=== PATIENT | male | born 1985 | race Caucasian/White ===

== ENCOUNTER 2016-11-14 20:17 | Inpatient (IN) | payer OTHER ==
[~2016-11-14] VITALS: Ht 177.8 cm; Wt 87.5 kg
--- NOTE | 2016-11-14 22:19 | ERA ---
ER Documentation Chief Complaint Date/Time DATE: 11/14/16 TIME: 22:17 Chief Complaint feels left foot infection getting worse, on vanco atb at home. HPI 31-year-old man presents with left foot redness and recent swelling. He has a recent complicated history of left foot cellulitis and ulcers. He was treated as an inpatient [facility] under Dr. Alba. He received IV antibiotics , and a PICC line was placed. He is currently receiving daily vancomycin intravenously and states after discharge his symptoms have gotten gradually worse. He states he is also ran out of his benzodiazepine and opioid medications. He denies fevers or chills, no vomiting or diarrhea, no chest pain or shortness of breath, no abdominal pain. ROS All systems reviewed and are negative except as per history of present illness. Medications Home Meds Reported Medications Magnesium Sulfate (Epsom Salt) 454 Gm Crystals, 454 GM MC BID 11/14/16 Nystatin* (Nystatin*) 15 Gm Cr, 1 APPLIC TOP BID, #1 TUB 11/14/16 Venlafaxine Hcl* (Venlafaxine Hcl ER*) 75 Mg Cap.er.24h, 75 MG PO DAILY, CAP 11/14/16 Quetiapine Fumarate* (Quetiapine Fumarate*) 50 Mg Tablet, 50 MG PO HS, TAB 11/14/16 Lorazepam* (Ativan*) 2 Mg Tablet, 2 MG PO TID Y for ANXIETY, #30 TAB 11/14/16 Gabapentin* (Gabapentin*) 100 Mg Capsule, 100 MG PO QHS, #90 CAP 11/14/16 Insulin Lispro (Humalog) 100 Unit/1 Ml Cartridge, 0-16 UNIT SQ AC MEALS 11/14/16 Insulin Glargine* (Lantus*) 100 Unit/Ml Soln, 55 UNIT SC QHS, #1 VIAL 11/14/16 Vancomycin HCl in Dextrose 5 % (Vancomycin 750 mg/250 ml-D5w) 750 Mg/250 Ml Plast..bag, 750 MG IV Q8H 11/14/16 Sennosides* (Senna Lax*) 8.6 Mg Tablet, 1 TAB PO QHS Y for PRN, TAB 11/14/16 Povidone-Iodine (Povidone-Iodine) 10% - 30 Ml Liquid.pkt, 1 APPLIC TOP BID, EA 11/14/16 Oxycodone Hcl* (Oxycontin*) 10 Mg Tab.sr.12h, 10 MG PO Q8H, TAB 11/14/16 Vitamin B Complex (B Complete) 1 Each Tablet, 1 EACH PO DAILY, TAB 11/14/16 Ibuprofen* (Ibuprofen*) 600 Mg Tablet, 600 MG PO TID Y for PRN, TAB 11/14/16 Docusate Sodium* (Docusate Sodium*) 100 Mg Capsule, 100 MG PO BID Y for PRN, # 60 CAP 11/14/16 Discontinued Reported Medications Magnesium Sulfate (Magnesium Sulfate) 1 Gm Powder, 1 GM MC 11/14/16 Allergies Allergies: Coded Allergies: No Known Drug Allergies (Verified Allergy, Unknown, 11/14/16) PMhx/Soc Diabetes mellitus type 1 History of Surgery: Yes (rt humerus broken and repaired ) Hx Neurological Disorder: No Hx Respiratory Disorders: No Hx Cardiac Disorders: No Hx Alcohol Use: No Hx Substance Use: No Hx Tobacco Use: Yes Smoking Status: Current some day smoker FmHx Family History: diabetes Physical Exam Vitals Vital Signs Date Time Temp Pulse Resp B/P Pulse Ox O2 Delivery O2 Flow Rate FiO2 11/14/16 20:33 98.5 112 20 135/80 97 Physical Exam GENERAL: Well-developed, well-nourished, well-hydrated, in no apparent distress , looks nontoxic in appearance HEENT: Moist mucous membranes, pink conjunctiva, no cervical spine tenderness or step-off deformities, no goiter, no jaundice or icterus, extraocular movements intact without pain. No submandibular induration, and no pharyngeal erythema NEURO: Alert and oriented 3, cranial nerves II through XII intact bilaterally, pupils equal round reactive to light, no focal deficits or facial asymmetry, sensation intact distally Strength 5/5 in upper and lower extremities bilaterally CARDIAC: Regular rate and rhythm, no murmurs rubs or gallops LUNGS: Clear bilaterally no wheezing crackles or stridor ABDOMEN: Soft nontender, no guarding, no rigidity, no rebound, no psoas sign no obturator sign. Normoactive bowel sounds SKIN: Left foot soft tissue erythema and induration with 2 open weeping ulcerations to the lateral dorsal aspect of the left foot, no gangrenous changes or eschar formation EXTREMITIES: No clubbing cyanosis or edema, calves are bilaterally symmetrical, no Homans sign, no popliteal cord sign. Distal pulses equal and bilateral PSYCH: Normal affect without agitation or irritability Result Diagram: 11/14/16 2300 11/14/16 2330 Results 24 hrs Procedures/MDM IV line was established patient was placed on secured entrance monitor rhythm strip revealed a sinus rhythm at about 80 bpm with upright P and T waves. I administered imipenem cilastatin 500 mg IV 1, as well as hydromorphone 1 mg IV 1 for pain control. CBC revealed leukopenia at 2.5, electrolytes revealed dehydration with a BUN/ creatinine of 22/0.7, blood sugar elevated at 478, potassium slightly elevated at 5.2. I spoke to the physician covering Dr. Alba regarding the patient's presentation and symptomatology who recommended inpatient management to [facility] and continued IV antibiotics. Departure Diagnosis: Primary Impression: Cellulitis of foot Additional Impressions: Foot ulcer Qualified Code: L97.521 - Foot ulcer, left, limited to breakdown of skin Hyperglycemia Condition: ARJUN An MD Nov 14, 2016 22:19
[2016-11-14] MEDS ORDERED: IMIPENEM-CILAST 500MG IV (PMX) 100 ML IVPB ONE (22:30)
[2016-11-14] MEDS ORDERED: DOCU-159 PO (22:34)
[2016-11-14] MEDS ORDERED: IBUP-1542 PO (22:35)
[2016-11-14] MEDS ORDERED: VITA1TAB69 PO (22:40)
[2016-11-14] MEDS ORDERED: OXYC10TA63 PO (22:40)
[2016-11-14] MEDS ORDERED: POVI30SO TOP (22:41)
[2016-11-14] MEDS ORDERED: SENN-53 PO (22:42)
[2016-11-14] MEDS ORDERED: VANC750P5 IV (22:43)
[2016-11-14] MEDS ORDERED: LANT3I SC (22:44)
[2016-11-14] MEDS ORDERED: INSU100C SQ (22:45)
[2016-11-14] MEDS ORDERED: GABA100C14 PO (22:49)
[2016-11-14] MEDS ORDERED: LORA-444 PO (22:50)
[2016-11-14] MEDS ORDERED: QUET50TA22 PO (22:50)
[2016-11-14] MEDS ORDERED: VENL75CA89 PO (22:51)
[2016-11-14] MEDS ORDERED: NYST15CR28 TOP (22:53)
[2016-11-14] MEDS ORDERED: MAGN1POW MC (22:56)
[2016-11-14] MEDS ORDERED: MAGN454C7 MC (22:56)
[2016-11-14 23:10] LABS: ADD SCAN DIFF NO
[2016-11-14 23:15] LABS: BASOPHILS % 1.2 % (0.0-2.0); EOSINOPHILS # 0.1 10^3/ul (0.0-0.5); EOSINOPHILS % 2.8 % (0.0-7.0); HEMOGLOBIN 12.6 g/dl (14.0-18.0); LYMPHOCYTES # 0.7 10^3/ul (0.8-2.9); MEAN CORPUSCULAR HEMOGLOBIN 29.2 pg (29.0-33.0); MEAN CORPUSCULAR HGB CONC 33.2 g/dl (32.0-37.0); MEAN PLATELET VOLUME 11.1 fl (7.4-10.4); MONOCYTE # 0.3 10^3/ul (0.3-0.9); MONOCYTES % 10.5 % (0.0-11.0); NEUTROPHIL # 1.4 10^3/ul (1.6-7.5); NEUTROPHILS % 55.1 % (39.0-77.0); PLATELET COUNT 289 10^3/UL (140-415); RED BLOOD COUNT 4.32 10^6/ul (4.70-6.10); RED CELL DISTRIBUTION WIDTH 14.6 % (11.5-14.5); WHITE BLOOD COUNT 2.5 10^3/ul (4.8-10.8)
[2016-11-14] MEDS ORDERED: HYDROmorphONE 1 MG/ML SYG IV STA (23:22)
[2016-11-14 23:50] LABS: POTASSIUM 5.2 mmol/L (3.5-5.1)
[2016-11-14 23:53] LABS: CREATININE 0.71 mg/dl (0.61-1.24)
[2016-11-14 23:54] LABS: CALCIUM 8.6 mg/dl (8.4-10.2)
[2016-11-15] VITALS: BP 130/77; PULSE 80; RESP 20
[2016-11-15] MEDS ORDERED: IBUPROFEN 600 MG TAB PO PRN (01:00)
[2016-11-15] MEDS ORDERED: SENNA TAB PO PRN (01:00)
[2016-11-15] MEDS ORDERED: VANCOMYCIN IV PER PHARMACY XX SCH (01:00)
[2016-11-15] MEDS ORDERED: DOCUSATE SODIUM 100 MG CAP PO PRN (01:00)
[2016-11-15 01:24] VITALS: Ht 177.8 cm; Wt 87.5 kg
[2016-11-15] MEDS ORDERED: VANCOMYCIN 1.75 GM in NS 500 ML IVPB ONE (02:00)
[2016-11-15] MEDS: ACCUCHECK XX SCH (02:26)
[2016-11-15] MEDS: oxyCODONE (CR) 10 MG TAB [oxyCONTIN] PO SCH ×3 (02:33→17:01)
[2016-11-15] MEDS: INSULIN GLARGINE [LANtus] 3 ML PEN SC SCH ×2 (03:37→21:32)
[2016-11-15] MEDS: HYDROmorphONE 1 MG/ML SYG IV PRN ×5 (04:55→21:28)
[2016-11-15 06:07] LABS: BASOPHILS % 0.7 % (0.0-2.0); EOSINOPHILS # 0.1 10^3/ul (0.0-0.5); EOSINOPHILS % 4.1 % (0.0-7.0); HEMATOCRIT 34.9 % (42.0-52.0); HEMOGLOBIN 11.9 g/dl (14.0-18.0); LYMPHOCYTES # 0.9 10^3/ul (0.8-2.9); LYMPHOCYTES % 32.1 % (15.0-51.0); MEAN CORPUSCULAR HEMOGLOBIN 29.8 pg (29.0-33.0); MEAN CORPUSCULAR HGB CONC 34.1 g/dl (32.0-37.0); MEAN CORPUSCULAR VOLUME 87.3 fl (82.0-101.0); MEAN PLATELET VOLUME 9.8 fl (7.4-10.4); MONOCYTE # 0.3 10^3/ul (0.3-0.9); MONOCYTES % 11.4 % (0.0-11.0); NEUTROPHIL # 1.4 10^3/ul (1.6-7.5); NEUTROPHILS % 51.3 % (39.0-77.0); PLATELET COUNT 252 10^3/UL (140-415); RED CELL DISTRIBUTION WIDTH 14.1 % (11.5-14.5); WHITE BLOOD COUNT 2.7 10^3/ul (4.8-10.8)
[2016-11-15 06:17] LABS: POTASSIUM 4.5 mmol/L (3.5-5.1)
[2016-11-15 06:19] LABS: CREATININE 0.66 mg/dl (0.61-1.24)
[2016-11-15 06:20] LABS: CALCIUM 8.6 mg/dl (8.4-10.2)
[2016-11-15] MEDS: LORAZEPAM 1 MG TAB PO PRN ×2 (07:01→20:07)
[2016-11-15 07:59] VITALS: BP 106/58; RESP 18
[2016-11-15] MEDS: VITAMIN B COMPLEX/VIT C CAP PO SCH (08:26)
[2016-11-15] MEDS: VENLAFAXINE (XR) 75 MG CAP PO SCH (08:26)
[2016-11-15] MEDS: NYSTATIN 15 GM CR TOP SCH ×2 (08:27→21:43)
[2016-11-15] MEDS: INSULIN ASPART [NOVOLOG] 3 ML PEN SC SCH ×4 (08:50→21:00)
[2016-11-15] MEDS ORDERED: VANCOMYCIN 1.25 GM in SOD CHLORIDE 0.9% 250 ML IVPB SCH (10:00)
[2016-11-15] MEDS ORDERED: POVIDONE IODINE 10% 28.4 GM OINT TOP SCH (10:30)
--- NOTE | 2016-11-15 10:34 | RADRPT ---
PROCEDURE: XR Chest PA and Lateral CLINICAL INDICATION: Chest pain, short of breath, right upper extremity PICC line TECHNIQUE: PA and Lateral views of the chest were obtained. COMPARISON: None. FINDINGS: Cardiovascular: The cardiovascular silhouette appears unremarkable. Lung Fontana: The lung fontana appear clear with no nodule, alveolar infiltrate, for a interstitial pr ominence evident. Pleural Spaces: No pneumothorax is identified and no effusion is evident. Osseous Structures: The osseous structures appear intact. Soft Tissues: The soft tissues appear unremarkable. A right upper extremity PICC catheter is evident with the tip projecting to the superior vena cava. IMPRESSION: 1. Right upper extremity PICC catheter in place with the tip projecting to the superior vena cava. 2. Otherwise, unremarkable chest. Physician Vidal Date Time Electronically viewed and signed by Physician Vidal on 11/15/2016 10:34 /
--- NOTE | 2016-11-15 12:59 | CONS ---
Date/Time of Note Date/Time of Note DATE: 11/15/16 TIME: 12:01 Assessment/Plan Assessment/Plan Chief Complaint/Hosp Course ID PROGRESS NOTE TOTAL ABX DAY # 1=> Vanco IV + Primaxin IV x1 in ED 24H INTERVAL SUMMARY * New onset rash ?allergy to Primaxin * Subjective fevers/chills at home, no reports all his joints "ache" has been in bed x 1-month * Left foot pain level increasing HPI * 31 yo DMT1 M admitted initially to [facility] x2 days for acute left foot cellulitis/abscess reports MRI done @ [facility]. He left [facility] after 2 days due to his concern not receiving adequate care and presented immediately to [facility] the same day where he was treated/admitted x 14 days, PICC line was placed and patient was discharge to IV ABX treatment with Vanco IV daily. He was on Doxy + Zosyn at [place], reports he had "red melissa syndrome to Vanco IV , but not bad". Tells me arterial studies where done and were "OK". Questionable H/O diabetic nephropathy vs renal insufficiency in setting of NSAIDS + Vanco IV @ [facility] ? * (+)Cigarettes ~5/daily, wants to quit has 7 year old daughter @ Home * Denies Hx of HIV, he gives verbal consent to test for this, denies IVDU, quit ETOH DIAGNOSTIC IMAGING REPORT Patient: TAMI MILLER : 1985 Age: 31 Sex: M MR #: [id number] DOS: 11/15/16 0000 Ordering MD: ALFONZO ANDERSON MD [place] [facility] [place]Bed: 607-A PROCEDURE: XR Chest PA and Lateral CLINICAL INDICATION: Chest pain, short of breath, right upper extremity PICC line IMPRESSION: 1. Right upper extremity PICC catheter in place with the tip projecting to the superior vena cava. 2. Otherwise, unremarkable chest. PMhx/Soc Diabetes mellitus type 1 PSYCH: Depression/Anxiety History of Surgery: Yes (rt humerus broken and repaired - 2007 w/metal implant) Hx Neurological Disorder: No Hx Respiratory Disorders: No Hx Cardiac Disorders: No Hx Alcohol Use: No Hx Substance Use: No Hx Tobacco Use: Yes Smoking Status: Current some day smoker FmHx Family History: diabetes PHYSICAL EXAMINATION: GENERAL: VSS, NAD HEENT: Unremarkable NECK: Trach midline CHEST: Rise symmetrical - without dyspnea on observation HEART: RRR ABDOMEN: Soft, EXTREMITIES: Warm, left foot DSG removed foot w/mild edema, pallor, has 3 open lesions and one closed on dorsal aspect of foot (+)Lateral neuropathic pain SKIN: Multiple Tattoos, diffuse macular papular rash ID ASSESSMENT: 31 yo M w/PMHx DMT1, tobacco admit with: 1. Acute left foot cellulitis with non-healing diabetic foot ulcers -> Failed OP treatment with HH IV Vanco 2. Severe left foot pain => Progressively worse, Ultram was effective at [facility], No relief with Gabapentin/Tramadol 3. Diabetic peripheral neuropathy w/neuropathic pain 4. Tobaccoism -> Tobacco cessation strongly advocated today, educated patient about the toxic combo of tobacco + DMT1 leads to AVN - severe ischemic limb disease 5. Questionable H/O diabetic nephropathy vs renal insufficiency in setting of NSAIDS + Vanco IV @ [facility] ? 6. New onset pruritic rash => Suspect drug reaction to either Primaxin, cannot r /o reaction to Vanco IV. ( )MRSA Nares = pending INVASIVES: *PIV ABX ALLERGIES: UNVERIFIED: Possible acute reaction to either Primaxin or VANCO IV ? Red Man's Syndrome; however he has been tolerating Vanco IV via CURRENT ABX: Vanco IV, s/p Primaxin x1 ID RECOMMENDATIONS: Patient now with acute rash suspicious for either Vanco IV vs Primaxin ABX. Let's change Vanco IV to DAPTO IV, add Azactam + Flagyl for concern hx of abscess @ [facility] * ABX choices are limited due to concern PCN cross-reactivity with Primaxin, possibly with cephalosporins as well. Fluoroquinolones not an ideal choice to to severity of his DMT1 neuropathy. Await results nares and left foot open wound cx MRI ordered -> r/o abscess vs septic joint, tenosynovitis, osteomyelitis Left lower extremity BLANCA ordered DC Iodine -> Poor wound healing (Iodine is toxic to new skin cells), will change to Silvadene topical Consider APC consult Tattoos -> Patient gives me verbal consent to check HIV status . Problems: Consultation Date/Type/Reason Admit Date/Time Nov 14, 2016 at 22:08 Initial Consult Date Exam/Review of Systems Vital Signs Vitals Vital Signs Date Time Temp Pulse Resp B/P Pulse Ox O2 Delivery O2 Flow Rate FiO2 11/15/16 07:59 99.4 94 18 106/58 95 11/15/16 00:00 Room Air Intake and Output 11/14/16 11/14/16 11/15/16 15:00 23:00 07:00 Intake Total 960 ml Output Total 650 ml Balance 310 ml Results Result Diagram: 11/15/16 0515 11/15/16 0515 Results 24 hrs Laboratory Tests Test 11/14/16 23:00 11/14/16 23:30 11/15/16 02:26 11/15/16 05:15 Basophils # 0.0 0.0 Basophils % 1.2 0.7 Eosinophils # 0.1 0.1 Eosinophils % 2.8 4.1 Hematocrit 38.0 L 34.9 L Hemoglobin 12.6 L 11.9 L Lymphocytes # 0.7 L 0.9 Lymphocytes % 30.0 32.1 Mean Corpuscular Hemoglobin 29.2 29.8 Mean Corpuscular Hemoglobin Concent 33.2 34.1 Mean Corpuscular Volume 88.0 87.3 Mean Platelet Volume 11.1 H 9.8 Monocytes # 0.3 0.3 Monocytes % 10.5 11.4 H Neutrophils # 1.4 L 1.4 L Neutrophils % 55.1 51.3 Nucleated Red Blood Cells # 0.0 0.0 Nucleated Red Blood Cells % 0.0 0.0 Platelet Count 289 252 Red Blood Count 4.32 L 4.00 L Red Cell Distribution Width 14.6 H 14.1 White Blood Count 2.5 L 2.7 L Anion Gap 16 12 Blood Urea Nitrogen 22 H 18 Calcium Level 8.6 8.6 Carbon Dioxide Level 26 30 Chloride Level 95 L 101 Creatinine 0.71 0.66 Glucose Level 478 *H 269 #H Potassium Level 5.2 H 4.5 Sodium Level 132 L 138 Bedside Glucose 254 H Test 11/15/16 07:45 11/15/16 11:45 Bedside Glucose 224 H 65 L Medications Medications Current Medications Docusate Sodium (Colace) 100 mg BID PRN PO PRN; Start 11/15/16 at 01:00 Gabapentin (Neurontin) 100 mg QHS PO ; Start 11/15/16 at 21:00 Ibuprofen (Motrin) 600 mg TID PRN PO PRN; Start 11/15/16 at 01:00 Insulin Glargine (Lantus) 55 unit QHS SC Last administered on 11/15/16 03:37; Admin Dose 55 UNIT; Start 11/15/16 at 03:30 Lorazepam (Ativan) 2 mg TID PRN PO ANXIETY Last administered on 11/15/16 07:01 ; Admin Dose 2 MG; Start 11/15/16 at 01:00 Nystatin (Nystatin Cr) 1 applic BID TOP Last administered on 11/15/16 08:27; Admin Dose 1 APPLIC; Start 11/15/16 at 09:00 Oxycodone HCl (Oxycontin) 10 mg Q8H PO Last administered on 11/15/16 08:27; Admin Dose 10 MG; Start 11/15/16 at 01:00 Senna (Senokot) 1 tab QHS PRN PO PRN; Start 11/15/16 at 01:00 Venlafaxine HCl (Effexor Xr) 75 mg DAILY PO Last administered on 11/15/16 08: 26; Admin Dose 75 MG; Start 11/15/16 at 09:00 Povidone Iodine (Povidone-Iodine) 1 applic BID TOP ; Start 11/15/16 at 10:30 Quetiapine Fumarate (Seroquel) 50 mg HS PO ; Start 11/15/16 at 21:00 Vitamin B Complex/ Vitamin C (Berocca) 1 cap DAILY PO Last administered on 11/15 08:26; Admin Dose 1 CAP; Start 11/15/16 at 09:00 Diagnostic Test (Pha) 1 ea 1 ea 02 XX Last administered on 11/15/16 02:26; Admin Dose 1 EA; Start 11/15/16 at 02:00 Vancomycin HCl 1.75 gm/Sodium Chloride 500 ml @ 125 mls/hr ONCE ONCE IVPB Last administered on 11/15/16 02:22; Admin Dose 125 MLS/HR; Start 11/15/16 at 02:00; Stop 11/15/16 at 05:59 Vancomycin HCl/ Sodium Chloride (Vancocin/NS) 250 ml @ 83.333 mls/ hr Q8H IVPB Last administered on 11/15/16 10:48; Admin Dose 83.333 MLS/HR; Start at 10:00 Hydromorphone HCl (Dilaudid) 1 mg Q4H PRN IV PAIN Last administered on 09:14; Admin Dose 1 MG; Start 11/15/16 at 05:00 Miscellaneous Information (*Rx Drug Level Order Reminder*) VANCOMYCIN TROUGH AT 0100 ONCE ONCE XX ; Start 11/16/16 at 01:00; Stop 11/16/16 at 01:01 ODELL CAVAZOS NP Nov 15, 2016 12:11
[2016-11-15] MEDS: metroNIDAZOLE 500 MG/NS (PMX) 250 MG in EVAC CONTAINER 1 BOTTLE IVPB SCH ×2 (15:21→22:29)
[2016-11-15] MEDS: AZTREONAM 1 GM/NS (PMX) 50 ML IVPB SCH ×2 (16:18→21:51)
[2016-11-15] MEDS: DAPTOMYCIN IVPB SCH (17:01)
[2016-11-15] MEDS: SOD CHLORIDE 0.9% IVPB SCH (17:01)
--- NOTE | 2016-11-15 19:10 | HP ---
Date/Time of Note Date/Time of Note DATE: 11/15/16 TIME: 19:06 Assessment/Plan VTE Prophylaxis VTE Prophylaxis Intervention: LMWH Lines/Catheters Urinary Cath still in place: No Assessment/Plan Assessment/Plan admitted for iv abx id eval HPI/ROS Admit Date/Time Admit Date/Time Nov 14, 2016 at 22:08 Hx of Present Illness failed out pt abx rx contd foot swelling and pain and fevers pt came [facility] ROS Constitutional: febrile Eyes: no complaints ENT: no complaints Respiratory: no complaints Cardiovascular: no complaints Gastrointestinal: no complaints Musculoskeletal: swelling Skin: erythema, skin lesions Neurologic: no complaints PMH/Family/Social Past Medical History Medical History: diabetes Family History Significant Family History: no pertinent family hx Social History Alcohol Use: none Smoking Status: Never smoker Drug Use: none Exam/Review of Systems Vital Signs Vitals Vital Signs Date Time Temp Pulse Resp B/P Pulse Ox O2 Delivery O2 Flow Rate FiO2 11/15/16 07:59 99.4 94 18 106/58 95 11/15/16 00:00 Room Air Intake and Output 11/14/16 11/14/16 11/15/16 15:00 23:00 07:00 Intake Total 960 ml Output Total 650 ml Balance 310 ml Exam Constitutional: alert, oriented Psych: no complaints Head: atraumatic, normocephalic Eyes: nl conjunctiva ENMT: nl external ears & nose Neck: supple Respiratory: clear to auscultation, normal air movement Cardiovascular: nl pulses, regular rate and rhythm Gastrointestinal: nl liver, spleen, non-tender, soft Musculoskeletal: swelling Neurological: SOFT SUGAR SUPERVISOR II-XII intact Labs Result Diagram: 11/15/1651411/15/16514 Medications Medications Current Medications Docusate Sodium (Colace) 100 mg BID PRN PO PRN; Start 11/15/16 at 01:00 Gabapentin (Neurontin) 100 mg QHS PO ; Start 11/15/16 at 21:00 Ibuprofen (Motrin) 600 mg TID PRN PO PRN; Start 11/15/16 at 01:00 Insulin Glargine (Lantus) 55 unit QHS SC Last administered on 11/15/16t 03:37; Admin Dose 55 UNIT; Start 11/15/16 at 03:30 Lorazepam (Ativan) 2 mg TID PRN PO ANXIETY Last administered on 11/15/16 07:01 ; Admin Dose 2 MG; Start 11/15/16 at 01:00 Nystatin (Nystatin Cr) 1 applic BID TOP Last administered on 11/15/16 08:27; Admin Dose 1 APPLIC; Start 11/15/16 at 09:00 Oxycodone HCl (Oxycontin) 10 mg Q8H PO Last administered on 11/15/16 17:01; Admin Dose 10 MG; Start 11/15/16 at 01:00 Senna (Senokot) 1 tab QHS PRN PO PRN; Start 11/15/16 at 01:00 Venlafaxine HCl (Effexor Xr) 75 mg DAILY PO Last administered on 11/15/16 08: 26; Admin Dose 75 MG; Start 11/15/16 at 09:00 Quetiapine Fumarate (Seroquel) 50 mg HS PO ; Start 11/15/16 at 21:00 Vitamin B Complex/ Vitamin C (Berocca) 1 cap DAILY PO Last administered on 11/15 08:26; Admin Dose 1 CAP; Start 11/15/16 at 09:00 Diagnostic Test (Pha) (Accucheck) 1 ea 02 XX Last administered on 11/15/16 02: 26; Admin Dose 1 EA; Start 11/15/16 at 02:00 Hydromorphone HCl 1 mg 1 mg Q4H PRN IV PAIN Last administered on 11/15/16 17: 01; Admin Dose 1 MG; Start 11/15/16 at 05:00 Daptomycin 525 mg/ Sodium Chloride 100 ml @ 200 mls/hr Q24H IVPB Last administered on 11/15/16 17:01; Admin Dose 200 MLS/HR; Start 11/15/16 at 16:00 Metronidazole 250 mg/N/A 50 ml @ 50 mls/hr Q8 IVPB Last administered on 15:21; Admin Dose 50 MLS/HR; Start 11/15/16 at 15:30 Aztreonam (Azactam 1gm/NS (Pmx)) 50 ml @ 100 mls/hr Q8 IVPB Last administered on 11/15/16 16:18; Admin Dose 100 MLS/HR; Start 11/15/16 at 15:30 Silver Sulfadiazine (Thermazene 1% 25 Gm) 1 applic BID TOP ; Start 11/15/16 at 21:00 ALFONZO ANDERSON MD Nov 15, 2016 19:10
[2016-11-15 20:00] VITALS: BP 120/75; RESP 20
[2016-11-15] MEDS: SILVER SULFADIAZINE 1% 25 GM CR TOP SCH (20:22)
[2016-11-15] MEDS: QUETIAPINE 25 MG TAB PO SCH (21:00)
[2016-11-15] MEDS: GABAPENTIN 100 MG CAP PO SCH (21:00)
[2016-11-16] MEDS: oxyCODONE (CR) 10 MG TAB [oxyCONTIN] PO SCH ×3 (01:17→17:18)
[2016-11-16] MEDS: ACCUCHECK XX SCH (02:00)
[2016-11-16] MEDS: HYDROmorphONE 1 MG/ML SYG IV PRN ×6 (02:03→22:15)
[2016-11-16] MEDS: metroNIDAZOLE 500 MG/NS (PMX) 250 MG in EVAC CONTAINER 1 BOTTLE IVPB SCH ×3 (06:00→23:22)
[2016-11-16] MEDS: AZTREONAM 1 GM/NS (PMX) 50 ML IVPB SCH ×3 (06:00→22:17)
[2016-11-16 06:12] LABS: BASOPHILS % 0.7 % (0.0-2.0); EOSINOPHILS # 0.2 10^3/ul (0.0-0.5); HEMOGLOBIN 12.6 g/dl (14.0-18.0); LYMPHOCYTES # 1.1 10^3/ul (0.8-2.9); LYMPHOCYTES % 33.7 % (15.0-51.0); MEAN CORPUSCULAR HEMOGLOBIN 29.5 pg (29.0-33.0); MEAN CORPUSCULAR HGB CONC 34.2 g/dl (32.0-37.0); MEAN CORPUSCULAR VOLUME 86.4 fl (82.0-101.0); MEAN PLATELET VOLUME 7.2 fl (7.4-10.4); MONOCYTE # 0.4 10^3/ul (0.3-0.9); MONOCYTES % 11.8 % (0.0-11.0); NEUTROPHIL # 1.6 10^3/ul (1.6-7.5); NEUTROPHILS % 48.8 % (39.0-77.0); PLATELET COUNT 265 10^3/UL (140-440); RED BLOOD COUNT 4.28 10^6/ul (4.70-6.10); UNCORRECTED WBC 3.3 10^3/ul (4.8-10.8); WHITE BLOOD COUNT 3.3 10^3/ul (4.8-10.8)
[2016-11-16 06:24] LABS: CONDITION 1; LH ANALYZER COMMENTS 1
[2016-11-16 06:43] LABS: ALBUMIN 3.2 g/dl (3.3-4.9); POTASSIUM 3.9 mmol/L (3.5-5.1)
[2016-11-16 06:47] LABS: CALCIUM 8.8 mg/dl (8.4-10.2); CREATININE 0.67 mg/dl (0.61-1.24); PHOSPHORUS 4.4 mg/dl (2.5-4.9)
[2016-11-16 06:48] LABS: ALBUMIN 3.3 g/dl (3.3-4.9)
[2016-11-16 06:49] LABS: POTASSIUM 3.9 mmol/L (3.5-5.1)
[2016-11-16 06:50] LABS: C-REACTIVE PROTEIN 3.2 mg/dl (0.0-0.9)
[2016-11-16 06:51] LABS: BILIRUBIN,INDIRECT 0.1 mg/dl (0-1.1); BILIRUBIN,TOTAL 0.1 mg/dl (0.2-1.3); CREATININE 0.68 mg/dl (0.61-1.24)
[2016-11-16 06:52] LABS: ALBUMIN/GLOBULIN RATIO 1.17; CALCIUM 8.8 mg/dl (8.4-10.2); TOTAL PROTEIN 6.1 g/dl (6.1-8.1)
[2016-11-16 08:09] VITALS: BP 100/62; RESP 18
[2016-11-16] MEDS: INSULIN ASPART [NOVOLOG] 3 ML PEN SC SCH ×4 (08:15→22:27)
--- NOTE | 2016-11-16 08:29 | RADRPT ---
PROCEDURE: MRI OF THE LEFT FOOT. CLINICAL INDICATION: Diabetic ulcer. Clinical concern is for tenosynovitis and osteomyelitis. TECHNIQUE: Multiple MR pulse sequences in multiple planes were obtained. Images were interpreted o n the high-resolution PACS system. COMPARISON: None available FINDINGS: There are skin and subcutaneous defect at the dorsal margin of the midfoot more pronounced dorsal to the fifth metatarsal base seen on the sagittal sequence image 6. There is a subcutaneous fluid col lection/abscess in this region measuring up to 10 cm in length and up to 3 cm transverse and lies mu scle superficial to the extensor tendons. There are a few foci of hyperintensity extending deep to the extensor tendons. No definite tenosynovitis is seen. The flexor tendons are intact. No eviden ce for flexor tenosynovitis. No abnormal fluid collections are seen at the plantar musculature. There is a moderate bone marrow edema pattern at the lateral margins of the cuboid and calcaneus at the calcaneal cuboid joint is best seen on the sagittal sequence image 9 with faint T1 bone marrow s ignal changes seen on the coronal sequence image 42 likely representing early osteomyelitis. No abn ormal intra osseous collection is seen. IMPRESSION: 1. Moderate bone marrow edema and faint T1 bone marrow signal infiltration at the lateral margins o f the cuboid and calcaneus suggesting early osteomyelitis. 2. Moderate sized subcutaneous fluid collection/abscess at the dorsal margin of the midfoot most pr onounced near the lateral calcaneal cuboid margins and extending distally, measuring up to 10 cm in length, as detailed above. RPTAT: PP .Andrew Murray MD, MD Date Time Electronically viewed and signed by .Andrew Murray MD, MD on 11/16/2016 08:29 .d/
[2016-11-16] MEDS: NYSTATIN 15 GM CR TOP SCH ×2 (09:07→21:00)
[2016-11-16] MEDS: VENLAFAXINE (XR) 75 MG CAP PO SCH (09:07)
[2016-11-16] MEDS: SILVER SULFADIAZINE 1% 25 GM CR TOP SCH ×2 (09:07→23:23)
[2016-11-16] MEDS: VITAMIN B COMPLEX/VIT C CAP PO SCH (09:07)
[2016-11-16] MEDS: LORAZEPAM 1 MG TAB PO PRN ×2 (09:36→20:21)
--- NOTE | 2016-11-16 10:25 | PN ---
Date/Time of Note Date/Time of Note DATE: 11/16/16 TIME: 10:23 Assessment/Plan VTE Prophylaxis VTE Prophylaxis Intervention: other Assessment/Plan Problems: (1) Foot ulcer Status: Acute Qualifiers: Laterality: left Non-pressure ulcer stage: limited to breakdown of skin Qualified Code: L97.521 - Foot ulcer, left, limited to breakdown of skin (2) Cellulitis of foot Status: Acute (3) Hyperglycemia Status: Acute Assessment/Plan [id number] on iv abx id f/u pain control Exam/Review of Systems Vital Signs Vitals Vital Signs Date Time Temp Pulse Resp B/P Pulse Ox O2 Delivery O2 Flow Rate FiO2 11/16/16 08:09 98.3 78 18 100/62 94 11/15/16 00:00 Room Air Intake and Output 11/15/16 11/15/16 11/16/16 15:00 23:00 07:00 Intake Total 250 ml 1490 ml 580 ml Balance 250 ml 1490 ml 580 ml Exam Constitutional: alert, oriented Psych: no complaints Head: normocephalic ENMT: nl external ears & nose Neck: supple Respiratory: clear to auscultation Cardiovascular: regular rate and rhythm Gastrointestinal: soft Musculoskeletal: swelling Results Result Diagram: 11/16/16 0510 11/16/16 0510 Results 24 hrs Laboratory Tests Test 11/15/16 11:45 11/15/16 12:26 11/15/16 13:01 11/15/16 17:16 Bedside Glucose 65 L 74 75 66 L Test 11/15/16 17:48 11/15/16 18:05 11/15/16 21:27 11/16/16 05:00 Bedside Glucose 102 127 99 HIV (1&2) Antibody NEGATIVE Test 11/16/16 05:10 11/16/16 07:50 11/16/16 09:11 11/16/16 09:38 Alanine Aminotransferase (ALT/SGPT) 122 H Albumin 3.3 Albumin/Globulin Ratio 1.17 Alkaline Phosphatase 211 H Anion Gap 13 Aspartate Amino Transf (AST/SGOT) 110 H Basophils # 0.0 Basophils % 0.7 Blood Morphology Comment Blood Urea Nitrogen 16 C-Reactive Protein 3.2 H Calcium Level 8.8 Carbon Dioxide Level 30 Chloride Level 102 Creatinine 0.68 Direct Bilirubin 0.00 Eosinophils # 0.2 Eosinophils % 5.0 Erythrocyte Sedimentation Rate 14 Globulin 2.80 Glucose Level 56 L Hematocrit 37.0 L Hemoglobin 12.6 L Indirect Bilirubin 0.1 Lymphocytes # 1.1 Lymphocytes % 33.7 Mean Corpuscular Hemoglobin 29.5 Mean Corpuscular Hemoglobin Concent 34.2 Mean Corpuscular Volume 86.4 Mean Platelet Volume 7.2 #L Monocytes # 0.4 Monocytes % 11.8 H Neutrophils # 1.6 Neutrophils % 48.8 Nucleated Red Blood Cells # 0.0 Nucleated Red Blood Cells % 0.0 Phosphorus Level 4.4 Platelet Count 265 Potassium Level 3.9 Red Blood Count 4.28 L Red Cell Distribution Width 15.0 H Sodium Level 141 Total Bilirubin 0.1 L Total Protein 6.1 White Blood Count 3.3 #L Bedside Glucose 61 L 246 H 199 Medications Medications Current Medications Docusate Sodium (Colace) 100 mg BID PRN PO PRN; Start 11/15/16 at 01:00 Gabapentin (Neurontin) 100 mg QHS PO ; Start 11/15/16 at 21:00 Ibuprofen (Motrin) 600 mg TID PRN PO PRN; Start 11/15/16 at 01:00 Insulin Glargine (Lantus) 55 unit QHS SC Last administered on 11/15/16 21:32; Admin Dose 55 UNIT; Start 11/15/16 at 03:30 Lorazepam (Ativan) 2 mg TID PRN PO ANXIETY Last administered on 11/16/16 09:36 ; Admin Dose 2 MG; Start 11/15/16 at 01:00 Nystatin (Nystatin Cr) 1 applic BID TOP Last administered on 11/16/16 09:07; Admin Dose 1 APPLIC; Start 11/15/16 at 09:00 Oxycodone HCl (Oxycontin) 10 mg Q8H PO Last administered on 11/16/16 09:06; Admin Dose 10 MG; Start 11/15/16 at 01:00 Senna (Senokot) 1 tab QHS PRN PO PRN; Start 11/15/16 at 01:00 Venlafaxine HCl (Effexor Xr) 75 mg DAILY PO Last administered on 11/16/16 09: 07; Admin Dose 75 MG; Start 11/15/16 at 09:00 Quetiapine Fumarate (Seroquel) 50 mg HS PO ; Start 11/15/16 at 21:00 Vitamin B Complex/ Vitamin C (Berocca) 1 cap DAILY PO Last administered on 11/16 09:07; Admin Dose 1 CAP; Start 11/15/16 at 09:00 Diagnostic Test (Pha) (Accucheck) 1 ea 02 XX Last administered on 11/15/16 02: 26; Admin Dose 1 EA; Start 11/15/16 at 02:00 Hydromorphone HCl 1 mg 1 mg Q4H PRN IV PAIN Last administered on 11/16/16 09: 55; Admin Dose 1 MG; Start 11/15/16 at 05:00 Daptomycin 525 mg/ Sodium Chloride 100 ml @ 200 mls/hr Q24H IVPB Last administered on 11/15/16 17:01; Admin Dose 200 MLS/HR; Start 11/15/16 at 16:00 Metronidazole 250 mg/N/A 50 ml @ 50 mls/hr Q8 IVPB Last administered on 06:00; Admin Dose 50 MLS/HR; Start 11/15/16 at 15:30 Aztreonam (Azactam 1gm/NS (Pmx)) 50 ml @ 100 mls/hr Q8 IVPB Last administered on 11/16/16 06:00; Admin Dose 100 MLS/HR; Start 11/15/16 at 15:30 Silver Sulfadiazine (Thermazene 1% 25 Gm) 1 applic BID TOP Last administered on 11/16/16 09:07; Admin Dose 1 APPLIC; Start 11/15/16 at 21:00 ALFONZO ANDERSON MD Nov 16, 2016 10:25
[2016-11-16] MEDS: HYDROCODONE/APAP (10/325) TAB NGT PRN ×3 (12:10→20:22)
[2016-11-16] MEDS: ALTEPLASE (CATHFLO) 2 MG INJ CATHETER PRN ×2 (12:13→18:24)
--- NOTE | 2016-11-16 12:44 | CONS ---
Date/Time of Note Date/Time of Note DATE: 11/16/16 TIME: 12:38 Assessment/Plan Assessment/Plan Chief Complaint/Hosp Course ID PROGRESS NOTE TOTAL ABX DAY # 2=> DAPTOMYCIN + Azactam #2 + Flagyl #2 s/p Vanco IV x1 in ED s/p Primaxin IV x1 in ED 24H INTERVAL SUMMARY * New onset rash ?allergy to Primaxin * Subjective fevers/chills at home, no reports all his joints "ache" has been in bed x 1-month * Left foot pain level increasing * MRI FOOT 11/15/16: IMPRESSION: * 1. Moderate bone marrow edema and faint T1 bone marrow signal infiltration at the lateral margins of the cuboid and calcaneus suggesting early osteomyelitis. * 2. Moderate sized subcutaneous fluid collection/abscess at the dorsal margin of the midfoot most pronounced near the lateral calcaneal cuboid margins and extending distally, measuring up to 10 cm in length, as detailed above. HPI * 31 yo DMT1 M admitted initially to [facility] x2 days for acute left foot cellulitis/abscess reports MRI done @ [facility]. He left [facility] after 2 days due to his concern not receiving adequate care and presented immediately to [facility] the same day where he was treated/admitted x 14 days, PICC line was placed and patient was discharge to IV ABX treatment with Vanco IV daily. He was on Doxy + Zosyn at [place], reports he had "red melissa syndrome to Vanco IV , but not bad". Tells me arterial studies where done and were "OK". Questionable H/O diabetic nephropathy vs renal insufficiency in setting of NSAIDS + Vanco IV @ [place] ? * (+)Cigarettes ~5/daily, wants to quit has 7 year old daughter @ Home * Denies Hx of HIV, he gives verbal consent to test for this, denies IVDU, quit ETOH PHYSICAL EXAMINATION: GENERAL: VSS, NAD HEENT: Unremarkable NECK: Trach midline CHEST: Rise symmetrical - without dyspnea on observation HEART: RRR ABDOMEN: Soft, EXTREMITIES: Warm, left foot DSG removed foot w/mild edema, pallor, has 3 open lesions and one closed on dorsal aspect of foot (+)Lateral neuropathic pain SKIN: Multiple Tattoos, diffuse macular papular rash ID ASSESSMENT: 31 yo M w/PMHx DMT1, tobacco admit with: 1. Acute left foot cellulitis, abscess, early osteomyelitis with non-healing diabetic foot ulcers -> Failed OP treatment with HH IV Vanco * MRI FOOT 11/15/16: IMPRESSION: * 1. Moderate bone marrow edema and faint T1 bone marrow signal infiltration at the lateral margins of the cuboid and calcaneus suggesting early osteomyelitis. * 2. Moderate sized subcutaneous fluid collection/abscess at the dorsal margin of the midfoot most pronounced near the lateral calcaneal cuboid margins and extending distally, measuring up to 10 cm in length, as detailed above. 2. Severe left foot pain => Progressively worse, Ultram was effective at [place], No relief with Gabapentin/Tramadol 3. Diabetic peripheral neuropathy w/neuropathic pain 4. Tobaccoism -> Tobacco cessation strongly advocated today, educated patient about the toxic combo of tobacco + DMT1 leads to AVN - severe ischemic limb disease 5. Questionable H/O diabetic nephropathy vs renal insufficiency in setting of NSAIDS + Vanco IV @ [place] ? 6. New onset pruritic rash => Suspect drug reaction to either Primaxin, cannot r /o reaction to Vanco IV. (-)MRSA Nares (-)HIV Screening 11/15/16 INVASIVES: *PIV ABX ALLERGIES: UNVERIFIED: Possible acute reaction to either Primaxin or VANCO IV ? Red Man's Syndrome; however he has been tolerating Vanco IV via CURRENT ABX: DAPTOMYCIN #2 + Azactam #2 + Flagyl #2 Vanco IV, s/p Primaxin x1 ID RECOMMENDATIONS: Patient now with acute rash suspicious for either Vanco IV vs Primaxin ABX. ABX CHANGED DUE TO CONCERN ABX DRUG RASH: Vanco IV to DAPTO IV, add Azactam + Flagyl for concern hx of abscess @ [facility] * ABX choices are limited due to concern PCN cross-reactivity with Primaxin, possibly with cephalosporins as well. Fluoroquinolones not an ideal choice to to severity of his DMT1 neuropathy. Await results nares and left foot open wound cx MRI-> Abscess + early osteomyelitis => recommend APC consult Left lower extremity BLANCA ordered DC Iodine -> Poor wound healing (Iodine is toxic to new skin cells)=> changed to Silvadene topical Tattoos -> Patient gives me verbal consent to check HIV status which is negative. . Problems: Consultation Date/Type/Reason Admit Date/Time Nov 14, 2016 at 22:08 Exam/Review of Systems Vital Signs Vitals Vital Signs Date Time Temp Pulse Resp B/P Pulse Ox O2 Delivery O2 Flow Rate FiO2 11/16/16 08:09 98.3 78 18 100/62 94 11/15/16 00:00 Room Air Intake and Output 11/15/16 11/15/16 11/16/16 15:00 23:00 07:00 Intake Total 250 ml 1490 ml 580 ml Balance 250 ml 1490 ml 580 ml Results Result Diagram: 11/16/16 0510 11/16/16 0510 Results 24 hrs Laboratory Tests Test 11/15/16 13:01 11/15/16 17:16 11/15/16 17:48 11/15/16 18:05 Bedside Glucose 75 66 L 102 127 Test 11/15/16 21:27 11/16/16 05:00 11/16/16 05:10 11/16/16 07:50 Bedside Glucose 99 61 L HIV (1&2) Antibody NEGATIVE Alanine Aminotransferase (ALT/SGPT) 122 H Albumin 3.3 Albumin/Globulin Ratio 1.17 Alkaline Phosphatase 211 H Anion Gap 13 Aspartate Amino Transf (AST/SGOT) 110 H Basophils # 0.0 Basophils % 0.7 Blood Morphology Comment Blood Urea Nitrogen 16 C-Reactive Protein 3.2 H Calcium Level 8.8 Carbon Dioxide Level 30 Chloride Level 102 Creatinine 0.68 Direct Bilirubin 0.00 Eosinophils # 0.2 Eosinophils % 5.0 Erythrocyte Sedimentation Rate 14 Globulin 2.80 Glucose Level 56 L Hematocrit 37.0 L Hemoglobin 12.6 L Indirect Bilirubin 0.1 Lymphocytes # 1.1 Lymphocytes % 33.7 Mean Corpuscular Hemoglobin 29.5 Mean Corpuscular Hemoglobin Concent 34.2 Mean Corpuscular Volume 86.4 Mean Platelet Volume 7.2 #L Monocytes # 0.4 Monocytes % 11.8 H Neutrophils # 1.6 Neutrophils % 48.8 Nucleated Red Blood Cells # 0.0 Nucleated Red Blood Cells % 0.0 Phosphorus Level 4.4 Platelet Count 265 Potassium Level 3.9 Red Blood Count 4.28 L Red Cell Distribution Width 15.0 H Sodium Level 141 Total Bilirubin 0.1 L Total Protein 6.1 White Blood Count 3.3 #L Test 11/16/16 09:11 11/16/16 09:38 11/16/16 11:53 Bedside Glucose 246 H 199 211 Medications Medications Current Medications Docusate Sodium (Colace) 100 mg BID PRN PO PRN; Start 11/15/16 at 01:00 Gabapentin (Neurontin) 100 mg QHS PO ; Start 11/15/16 at 21:00 Ibuprofen (Motrin) 600 mg TID PRN PO PRN; Start 11/15/16 at 01:00 Insulin Glargine (Lantus) 55 unit QHS SC Last administered on 11/15/16 21:32; Admin Dose 55 UNIT; Start 11/15/16 at 03:30 Lorazepam (Ativan) 2 mg TID PRN PO ANXIETY Last administered on 11/16/16 09:36 ; Admin Dose 2 MG; Start 11/15/16 at 01:00 Nystatin (Nystatin Cr) 1 applic BID TOP Last administered on 11/16/16 09:07; Admin Dose 1 APPLIC; Start 11/15/16 at 09:00 Oxycodone HCl (Oxycontin) 10 mg Q8H PO Last administered on 11/16/16 09:06; Admin Dose 10 MG; Start 11/15/16 at 01:00 Senna (Senokot) 1 tab QHS PRN PO PRN; Start 11/15/16 at 01:00 Venlafaxine HCl (Effexor Xr) 75 mg DAILY PO Last administered on 11/16/16 09: 07; Admin Dose 75 MG; Start 11/15/16 at 09:00 Quetiapine Fumarate (Seroquel) 50 mg HS PO ; Start 11/15/16 at 21:00 Vitamin B Complex/ Vitamin C (Berocca) 1 cap DAILY PO Last administered on 11/16 09:07; Admin Dose 1 CAP; Start 11/15/16 at 09:00 Diagnostic Test (Pha) (Accucheck) 1 ea 02 XX Last administered on 11/15/16 02: 26; Admin Dose 1 EA; Start 11/15/16 at 02:00 Hydromorphone HCl 1 mg 1 mg Q4H PRN IV PAIN Last administered on 11/16/16 09: 55; Admin Dose 1 MG; Start 11/15/16 at 05:00 Daptomycin 525 mg/ Sodium Chloride 100 ml @ 200 mls/hr Q24H IVPB Last administered on 11/15/16 17:01; Admin Dose 200 MLS/HR; Start 11/15/16 at 16:00 Metronidazole 250 mg/N/A 50 ml @ 50 mls/hr Q8 IVPB Last administered on 06:00; Admin Dose 50 MLS/HR; Start 11/15/16 at 15:30 Aztreonam (Azactam 1gm/NS (Pmx)) 50 ml @ 100 mls/hr Q8 IVPB Last administered on 11/16/16 06:00; Admin Dose 100 MLS/HR; Start 11/15/16 at 15:30 Silver Sulfadiazine (Thermazene 1% 25 Gm) 1 applic BID TOP Last administered on 11/16/16 09:07; Admin Dose 1 APPLIC; Start 11/15/16 at 21:00 Acetaminophen/ Hydrocodone Bitart ([place] (325)) 1 tab Q4H PRN NGT pain Last administered on 11/16/16 12:10; Admin Dose 1 TAB; Start 11/16/16 at 10:30 [facility] [employer] Nov 16, 2016 12:44
[2016-11-16] MEDS: SOD CHLORIDE 0.9% IVPB SCH (17:11)
[2016-11-16] MEDS: DAPTOMYCIN IVPB SCH (17:11)
--- NOTE | 2016-11-16 18:16 | CONS ---
DATE OF ADMISSION: 11/14/2016 DATE OF CONSULTATION: 11/15/2016 TYPE OF CONSULTATION: Infectious disease. REASON FOR CONSULTATION: Antibiotic management. HISTORY OF PRESENT ILLNESS: Jak Vinson is a 31-year-old male with numerous problems who come s in with fever and chills and joint aches and is being seen for antibiotic management. His problem s include adult-onset diabetes mellitus. The patient was admitted to [facility] for 2 days for acute left foot cellulitis. He left after 2 days due to concern not receiving adequate care and went to [facility] where he was treated and admitted for 14 days. A PICC line was placed. The patient was discharged to home health with IV antibiotic therapy on vancomycin. He wa s on doxycycline as well as Zosyn in the hospital. At [facility], he reports he had red ma n syndrome due to vancomycin, but that it was not too bad. He has a history of diabetic nephropathy versus renal insufficiency in the setting of NSAIDs. PAST MEDICAL HISTORY: Operations: He had a right humerus broken and repaired with metal implant in 2007. FAMILY HISTORY: Positive for diabetes. SOCIAL HISTORY: He smokes daily. He does not drink or abuse drugs. ALLERGIES: NONE TO PENICILLIN, SULFA, OR FOODS. MEDICATIONS: Per chart. REVIEW OF SYSTEMS: Noncontributory. PHYSICAL EXAMINATION: GENERAL: The patient is a well-developed, well-nourished male who is alert, responsive, in no acute distress. VITAL SIGNS: Stable. He is afebrile. SKIN: Without generalized rash. HEENT: Within normal limits. NECK: Supple. LYMPH NODES: None palpable. CHEST: Decreased breath sounds at the bases. HEART: Without murmur or gallop. ABDOMEN: Soft, nontender without organosplenomegaly or masses. EXTREMITIES: His left foot is warm. It has mild edema. There are 3 open lesions and 1 closed on t he dorsal aspect of the left foot. He has neuropathic pain. RECTAL AND GENITAL: Deferred. NEUROLOGIC: No focal neurological abnormality except for decreased sensation in the distal extremit ies. SKIN: The patient also has multiple tattoos and he has diffuse maculopapular rash, possibly related to Primaxin, which he was started on. He was started on vancomycin and Primaxin in the emergency r oom. IMAGING: A chest x-ray shows a right upper extremity PICC catheter tip projecting into the superior vena cava. ASSESSMENT: The patient with acute rash suspicious for either vancomycin or Primaxin. PLAN: We placed him on daptomycin, Flagyl, and Azactam. We will continue him on this regimen. An MRI suggested early osteomyelitis of the cuboid and calcaneus of the left foot and also moderate siz ed subcutaneous fluid collection and abscess at the dorsal margin of the mid foot pronounced near th e lateral calcaneocuboid margins. The patient may need 6 weeks of IV antibiotic therapy. I want to thank ____ for asking us to see this gentleman in consultation. Dictated By: ABDIRAHMAN SIFUENTES MD, JD/NTS Conf#: [id number] DID#: [id number] CC: TEODORA GARCIA MD;*End*
[2016-11-16] MEDS: GABAPENTIN 100 MG CAP PO SCH (20:21)
[2016-11-16] MEDS: QUETIAPINE 25 MG TAB PO SCH (20:21)
[2016-11-16 20:36] VITALS: BP 132/83; RESP 18
[2016-11-16] MEDS: INSULIN GLARGINE [LANtus] 3 ML PEN SC SCH (22:27)
[2016-11-17] MEDS: oxyCODONE (CR) 10 MG TAB [oxyCONTIN] PO SCH ×3 (01:15→17:58)
[2016-11-17] MEDS: HYDROmorphONE 1 MG/ML SYG IV PRN ×5 (02:07→22:09)
[2016-11-17] MEDS: ACCUCHECK XX SCH (02:15)
[2016-11-17] MEDS ORDERED: GLUCOSE GEL 15 GRAM TUBE PO PRN ×2 (03:00)
[2016-11-17] MEDS ORDERED: GLUCOSE GEL 15 GRAM TUBE BUCCAL PRN (03:00)
[2016-11-17] MEDS ORDERED: DEXTROSE 50% 50 ML SYRINGE IV PRN ×2 (03:00)
[2016-11-17] MEDS ORDERED: GLUCAGON 1 MG INJ IM PRN (03:00)
[2016-11-17] MEDS: HYDROCODONE/APAP (10/325) TAB NGT PRN ×3 (03:31→19:46)
[2016-11-17] MEDS: AZTREONAM 1 GM/NS (PMX) 50 ML IVPB SCH ×3 (05:43→21:33)
[2016-11-17] MEDS: metroNIDAZOLE 500 MG/NS (PMX) 250 MG in EVAC CONTAINER 1 BOTTLE IVPB SCH ×3 (05:43→21:33)
[2016-11-17 05:57] LABS: CREATININE 0.76 mg/dl (0.61-1.24)
[2016-11-17 07:50] VITALS: BP 127/80; RESP 18
[2016-11-17] MEDS: INSULIN ASPART [NOVOLOG] 3 ML PEN SC SCH ×4 (08:15→20:36)
[2016-11-17] MEDS: VITAMIN B COMPLEX/VIT C CAP PO SCH (08:41)
[2016-11-17] MEDS: VENLAFAXINE (XR) 75 MG CAP PO SCH (08:41)
[2016-11-17] MEDS: NYSTATIN 15 GM CR TOP SCH ×2 (09:22→20:41)
[2016-11-17] MEDS: SILVER SULFADIAZINE 1% 25 GM CR TOP SCH ×2 (09:22→20:42)
[2016-11-17] MEDS: LORAZEPAM 1 MG TAB PO PRN ×2 (10:53→19:46)
--- NOTE | 2016-11-17 12:04 | PN ---
Date/Time of Note Date/Time of Note DATE: 11/17/16 TIME: 12:01 Assessment/Plan VTE Prophylaxis VTE Prophylaxis Intervention: other Assessment/Plan Problems: (1) Cellulitis of foot Status: Acute (2) Foot ulcer Status: Acute Qualifiers: Laterality: left Non-pressure ulcer stage: limited to breakdown of skin Qualified Code: L97.521 - Foot ulcer, left, limited to breakdown of skin Assessment/Plan [id number] abx per id pain control on iv medsw will be changed to po soon Exam/Review of Systems Vital Signs Vitals Vital Signs Date Time Temp Pulse Resp B/P Pulse Ox O2 Delivery O2 Flow Rate FiO2 11/17/16 07:50 97.7 73 18 127/80 98 11/15/16 00:00 Room Air Intake and Output 11/16/16 11/16/16 11/17/16 15:00 23:00 07:00 Intake Total 50 ml 2490 ml 750 ml Output Total 400 ml Balance 50 ml 2090 ml 750 ml Exam Constitutional: alert, oriented Head: normocephalic ENMT: nl external ears & nose Neck: supple Respiratory: clear to auscultation Cardiovascular: regular rate and rhythm Gastrointestinal: soft Extremities: tenderness Results Result Diagram: 11/16/16 0510 11/17/16 0450 Results 24 hrs Laboratory Tests Test 11/16/16 14:50 11/16/16 15:14 11/16/16 15:34 11/16/16 17:13 Bedside Glucose 62 L 73 108 143 Test 11/16/16 20:19 11/17/16 02:08 11/17/16 02:38 11/17/16 03:22 Bedside Glucose 191 69 L 52 L 148 Test 11/17/16 04:50 11/17/16 07:45 11/17/16 11:55 Blood Urea Nitrogen 19 Creatine Kinase 22 L Creatinine 0.76 Bedside Glucose 92 78 Medications Medications Current Medications Docusate Sodium (Colace) 100 mg BID PRN PO PRN; Start 11/15/16 at 01:00 Gabapentin (Neurontin) 100 mg QHS PO Last administered on 11/16/16t 20:21; Admin Dose 100 MG; Start 11/15/16 at 21:00 Ibuprofen (Motrin) 600 mg TID PRN PO PRN; Start 11/15/16 at 01:00 Insulin Glargine (Lantus) 55 unit QHS SC Last administered on 11/16/16 22:27; Admin Dose 55 UNIT; Start 11/15/16 at 03:30 Lorazepam (Ativan) 2 mg TID PRN PO ANXIETY Last administered on 11/17/16 10:53 ; Admin Dose 2 MG; Start 11/15/16 at 01:00 Nystatin (Nystatin Cr) 1 applic BID TOP Last administered on 11/17/16 09:22; Admin Dose 1 APPLIC; Start 11/15/16 at 09:00 Oxycodone HCl (Oxycontin) 10 mg Q8H PO Last administered on 11/17/16 08:42; Admin Dose 10 MG; Start 11/15/16 at 01:00 Senna (Senokot) 1 tab QHS PRN PO PRN; Start 11/15/16 at 01:00 Venlafaxine HCl (Effexor Xr) 75 mg DAILY PO Last administered on 11/17/16 08: 41; Admin Dose 75 MG; Start 11/15/16 at 09:00 Quetiapine Fumarate (Seroquel) 50 mg HS PO Last administered on 11/16/16 20:21 ; Admin Dose 50 MG; Start 11/15/16 at 21:00 Vitamin B Complex/ Vitamin C (Berocca) 1 cap DAILY PO Last administered on 11/17 08:41; Admin Dose 1 CAP; Start 11/15/16 at 09:00 Diagnostic Test (Pha) (Accucheck) 1 ea 02 XX Last administered on 11/17/16 02: 15; Admin Dose 1 EA; Start 11/15/16 at 02:00 Hydromorphone HCl 1 mg 1 mg Q4H PRN IV PAIN Last administered on 11/17/16 09: 21; Admin Dose 1 MG; Start 11/15/16 at 05:00 Daptomycin 525 mg/ Sodium Chloride 100 ml @ 200 mls/hr Q24H IVPB Last administered on 11/16/16 17:11; Admin Dose 200 MLS/HR; Start 11/15/16 at 16:00 Metronidazole 250 mg/N/A 50 ml @ 50 mls/hr Q8 IVPB Last administered on 05:43; Admin Dose 50 MLS/HR; Start 11/15/16 at 15:30 Aztreonam (Azactam 1gm/NS (Pmx)) 50 ml @ 100 mls/hr Q8 IVPB Last administered on 11/17/16 05:43; Admin Dose 100 MLS/HR; Start 11/15/16 at 15:30 Silver Sulfadiazine (Thermazene 1% 25 Gm) 1 applic BID TOP Last administered on 11/17/16 09:22; Admin Dose 1 APPLIC; Start 11/15/16 at 21:00 Acetaminophen/ Hydrocodone Bitart ([place] ()) 1 tab Q4H PRN NGT pain Last administered on 11/17/16 10:53; Admin Dose 1 TAB; Start 11/16/16 at 10:30 Miscellaneous Information 1 ea NOTE XX ; Start 11/17/16 at 03:00 Glucose (Glutose) 15 gm Q15M PRN PO DECREASED GLUCOSE; Start 11/17/16 at 03:00 Glucose (Glutose) 22.5 gm Q15M PRN PO DECREASED GLUCOSE; Start 11/17/16 at 03: 00 Dextrose (D50w Syringe) 25 ml Q15M PRN IV DECREASED GLUCOSE; Start 11/17/16 at 03:00 Dextrose (D50w Syringe) 50 ml Q15M PRN IV DECREASED GLUCOSE; Start 11/17/16 at 03:00 Glucagon (Glucagen) 1 mg Q15M PRN IM DECREASED GLUCOSE; Start 11/17/16 at 03:00 Glucose (Glutose) 15 gm Q15M PRN BUCCAL DECREASED GLUCOSE; Start 11/17/16 at 03 :00 ALFONZO ANDERSON MD Nov 17, 2016 12:03
[2016-11-17 13:03] LABS: ALBUMIN 3.4 g/dl (3.3-4.9)
[2016-11-17 13:04] LABS: POTASSIUM 4.5 mmol/L (3.5-5.1)
[2016-11-17 13:06] LABS: BILIRUBIN,INDIRECT 0.1 mg/dl (0-1.1); BILIRUBIN,TOTAL 0.1 mg/dl (0.2-1.3); CREATININE 0.73 mg/dl (0.61-1.24)
[2016-11-17 13:07] LABS: ALBUMIN/GLOBULIN RATIO 1.3; CALCIUM 8.7 mg/dl (8.4-10.2)
--- NOTE | 2016-11-17 14:02 | PN ---
DATE: 11/17/2016 SUBJECTIVE: Patient is alert, complaining of pain, asking me to increase his pain medication. He i s in no distress on the computer. No fevers. No labs this morning except BUN 19, creatinine 0.76. MICROBIOLOGY: Wound culture pending. Blood cultures have been negative. DIAGNOSTICS: MRI of the foot revealed possible early osteomyelitis and questionable 10 cm abscess i n the mid foot. ANTIMICROBIALS: 1. Daptomycin. 2. . 3. Flagyl. PHYSICAL EXAMINATION: GENERAL: Well-nourished, well-developed, middle-aged white man who is alert, in no distress. HEENT: Head atraumatic, normocephalic. Sclerae anicteric. Buccal mucosa pink. NECK: Supple, trachea midline. CHEST: Rise symmetrical. Breath sounds clear. HEART: S1, S2. ABDOMEN: Soft, bowel tones present. EXTREMITIES: Left foot dressing intact. ASSESSMENT: 1. Left foot cellulitis, possible osteomyelitis and abscess. 2. Diabetes with diabetic neuropathy. 3. Positive for tobacco use. PLAN: The patient remains stable. We will continue him on current antimicrobials, await for podiat ry evaluation. Dictated By: IRASEMA MORA [employer] OFFICER for ABDIRAHMAN HARGROVE/AKI Conf#: [id number] DID#: [id number]
[2016-11-17] MEDS: DAPTOMYCIN IVPB SCH (15:28)
[2016-11-17] MEDS: SOD CHLORIDE 0.9% IVPB SCH (15:28)
[2016-11-17 20:00] VITALS: BP 126/64; PULSE 74; RESP 16
[2016-11-17] MEDS: GABAPENTIN 100 MG CAP PO SCH (20:26)
[2016-11-17] MEDS: QUETIAPINE 25 MG TAB PO SCH (20:26)
[2016-11-17] MEDS: INSULIN GLARGINE [LANtus] 3 ML PEN SC SCH (20:34)
[2016-11-18] MEDS: oxyCODONE (CR) 10 MG TAB [oxyCONTIN] PO SCH ×3 (02:36→18:28)
[2016-11-18] MEDS: ACCUCHECK XX SCH (02:38)
[2016-11-18] MEDS: HYDROmorphONE 1 MG/ML SYG IV PRN ×5 (03:35→21:23)
[2016-11-18] MEDS: metroNIDAZOLE 500 MG/NS (PMX) 250 MG in EVAC CONTAINER 1 BOTTLE IVPB SCH ×3 (05:55→22:15)
[2016-11-18] MEDS: AZTREONAM 1 GM/NS (PMX) 50 ML IVPB SCH ×3 (05:55→21:23)
[2016-11-18] MEDS: HYDROCODONE/APAP (10/325) TAB NGT PRN ×3 (05:56→20:07)
[2016-11-18 07:16] VITALS: BP 130/71; RESP 20
[2016-11-18] MEDS: INSULIN ASPART [NOVOLOG] 3 ML PEN SC SCH ×5 (07:53→21:00)
[2016-11-18] MEDS: VITAMIN B COMPLEX/VIT C CAP PO SCH (09:35)
[2016-11-18] MEDS: VENLAFAXINE (XR) 75 MG CAP PO SCH (09:36)
[2016-11-18] MEDS: LORAZEPAM 1 MG TAB PO PRN ×2 (09:36→18:51)
[2016-11-18] MEDS: SILVER SULFADIAZINE 1% 25 GM CR TOP SCH ×2 (09:38→21:15)
[2016-11-18] MEDS: NYSTATIN 15 GM CR TOP SCH ×2 (09:38→21:15)
--- NOTE | 2016-11-18 12:26 | CONS ---
Date/Time of Note Date/Time of Note DATE: 11/18/16 TIME: 12:23 Assessment/Plan Assessment/Plan Chief Complaint/Hosp Course SUBJECTIVE: Patient is alert, feels better, no fevers, nad MICROBIOLOGY: Wound culture negative. Blood cultures have been negative. DIAGNOSTICS: MRI of the foot revealed possible early osteomyelitis and questionable 10 cm abscess in the mid foot. ANTIMICROBIALS: 1. Daptomycin. 2. Azactam. 3. Flagyl. PHYSICAL EXAMINATION: GENERAL: Well-nourished, well-developed, middle-aged white man who is alert, in no distress. HEENT: Head atraumatic, normocephalic. Sclerae anicteric. Buccal mucosa pink. NECK: Supple, trachea midline. CHEST: Rise symmetrical. Breath sounds clear. HEART: S1, S2. ABDOMEN: Soft, bowel tones present. EXTREMITIES: Left foot with decreased swelling and erythema. ASSESSMENT: 1. Left foot cellulitis, possible early osteomyelitis and abscess. 2. Diabetes with diabetic neuropathy. 3. Positive for tobacco use. PLAN: The patient remains stable. Left foot looks better. We will continue him on current antimicrobials, await for podiatry evaluation==> if pt has OM he will need to be on 6 weeks abx at home. DW patient Problems: Consultation Date/Type/Reason Admit Date/Time Nov 14, 2016 at 22:08 Initial Consult Date Type of Consultation: ID Exam/Review of Systems Vital Signs Vitals Vital Signs Date Time Temp Pulse Resp B/P Pulse Ox O2 Delivery O2 Flow Rate FiO2 11/18/16 07:16 97.8 76 20 130/71 95 11/17/16 20:00 Room Air Intake and Output 11/17/16 11/17/16 11/18/16 15:00 23:00 07:00 Intake Total 1940 ml 900 ml Output Total 400 ml 450 ml Balance 1540 ml 450 ml Results Result Diagram: 11/16/16 0510 11/17/16 1240 Results 24 hrs Laboratory Tests Test 11/17/16 12:40 11/17/16 17:32 11/17/16 20:30 11/18/16 02:38 Alanine Aminotransferase (ALT/SGPT) 110 H Albumin 3.4 Albumin/Globulin Ratio 1.30 Alkaline Phosphatase 201 H Anion Gap 13 Aspartate Amino Transf (AST/SGOT) 79 H Blood Urea Nitrogen 20 Calcium Level 8.7 Carbon Dioxide Level 30 Chloride Level 100 Creatinine 0.73 Direct Bilirubin 0.00 Globulin 2.60 Glucose Level 108 # Indirect Bilirubin 0.1 Potassium Level 4.5 Sodium Level 138 Total Bilirubin 0.1 L Total Protein 6.0 L Bedside Glucose 148 302 H 205 Test 11/18/16 07:28 11/18/16 11:30 Bedside Glucose 82 203 Medications Medications Current Medications Docusate Sodium (Colace) 100 mg BID PRN PO PRN; Start 11/15/16 at 01:00 Gabapentin (Neurontin) 100 mg QHS PO Last administered on 11/17/16 20:26; Admin Dose 100 MG; Start 11/15/16 at 21:00 Ibuprofen (Motrin) 600 mg TID PRN PO PRN; Start 11/15/16 at 01:00 Insulin Glargine (Lantus) 55 unit QHS SC Last administered on 11/17/16 20:34; Admin Dose 55 UNIT; Start 11/15/16 at 03:30 Lorazepam (Ativan) 2 mg TID PRN PO ANXIETY Last administered on 11/18/16 09:36 ; Admin Dose 2 MG; Start 11/15/16 at 01:00 Nystatin (Nystatin Cr) 1 applic BID TOP Last administered on 11/18/16 09:38; Admin Dose 1 APPLIC; Start 11/15/16 at 09:00 Oxycodone HCl (Oxycontin) 10 mg Q8H PO Last administered on 11/18/16 09:36; Admin Dose 10 MG; Start 11/15/16 at 01:00 Senna (Senokot) 1 tab QHS PRN PO PRN; Start 11/15/16 at 01:00 Venlafaxine HCl (Effexor Xr) 75 mg DAILY PO Last administered on 11/18/16 09: 36; Admin Dose 75 MG; Start 11/15/16 at 09:00 Quetiapine Fumarate (Seroquel) 50 mg HS PO Last administered on 11/17/16 20:26 ; Admin Dose 50 MG; Start 11/15/16 at 21:00 Vitamin B Complex/ Vitamin C (Berocca) 1 cap DAILY PO Last administered on 11/18 09:35; Admin Dose 1 CAP; Start 11/15/16 at 09:00 Diagnostic Test (Pha) (Accucheck) 1 ea 02 XX Last administered on 11/18/16 02: 38; Admin Dose 1 EA; Start 11/15/16 at 02:00 Hydromorphone HCl 1 mg 1 mg Q4H PRN IV PAIN Last administered on 11/18/16 08: 11; Admin Dose 1 MG; Start 11/15/16 at 05:00 Daptomycin 525 mg/ Sodium Chloride 100 ml @ 200 mls/hr Q24H IVPB Last administered on 11/17/16 15:28; Admin Dose 200 MLS/HR; Start 11/15/16 at 16:00 Metronidazole 250 mg/N/A 50 ml @ 50 mls/hr Q8 IVPB Last administered on 05:55; Admin Dose 50 MLS/HR; Start 11/15/16 at 15:30 Aztreonam (Azactam 1gm/NS (Pmx)) 50 ml @ 100 mls/hr Q8 IVPB Last administered on 11/18/16 05:55; Admin Dose 100 MLS/HR; Start 11/15/16 at 15:30 Silver Sulfadiazine (Thermazene 1% 25 Gm) 1 applic BID TOP Last administered on 11/18/16 09:38; Admin Dose 1 APPLIC; Start 11/15/16 at 21:00 Acetaminophen/ Hydrocodone Bitart ([place] (10/325)) 1 tab Q4H PRN NGT pain Last administered on 11/18/16 11:00; Admin Dose 1 TAB; Start 11/16/16 at 10:30 Miscellaneous Information 1 ea NOTE XX ; Start 11/17/16 at 03:00 Glucose (Glutose) 15 gm Q15M PRN PO DECREASED GLUCOSE; Start 11/17/16 at 03:00 Glucose (Glutose) 22.5 gm Q15M PRN PO DECREASED GLUCOSE; Start 11/17/16 at 03: 00 Dextrose (D50w Syringe) 25 ml Q15M PRN IV DECREASED GLUCOSE; Start 11/17/16 at 03:00 Dextrose (D50w Syringe) 50 ml Q15M PRN IV DECREASED GLUCOSE; Start 11/17/16 at 03:00 Glucagon (Glucagen) 1 mg Q15M PRN IM DECREASED GLUCOSE; Start 11/17/16 at 03:00 Glucose (Glutose) 15 gm Q15M PRN BUCCAL DECREASED GLUCOSE; Start 11/17/16 at 03 :00 Fentanyl (Duragesic 25 Mcg/Hr Patch) 1 patch Q72H TRANSDERM Last administered on 11/17/16t 21:33; Admin Dose 1 PATCH; Start 11/17/16 at 21:00 IRASEMA MORA NP Nov 18, 2016 12:26
--- NOTE | 2016-11-18 14:35 | PN ---
Date/Time of Note Date/Time of Note DATE: 11/18/16 TIME: 14:33 Assessment/Plan VTE Prophylaxis VTE Prophylaxis Intervention: other Assessment/Plan Chief Complaint/Hosp Course cont pain contriol iv abx poditrist f/u Problems: (1) Cellulitis of foot Status: Acute Exam/Review of Systems Vital Signs Vitals Vital Signs Date Time Temp Pulse Resp B/P Pulse Ox O2 Delivery O2 Flow Rate FiO2 11/18/16 07:16 97.8 76 20 130/71 95 11/17/16 20:00 Room Air Intake and Output 11/17/16 11/17/16 11/18/16 15:00 23:00 07:00 Intake Total 1940 ml 900 ml Output Total 400 ml 450 ml Balance 1540 ml 450 ml Exam Constitutional: alert, oriented Psych: no complaints Head: normocephalic Eyes: nl conjunctiva Neck: supple Respiratory: clear to auscultation Cardiovascular: regular rate and rhythm Gastrointestinal: soft Musculoskeletal: swelling Results Result Diagram: 11/16/16 0510 11/17/16 1240 Results 24 hrs Laboratory Tests Test 11/17/16 17:32 11/17/16 20:30 11/18/16 02:38 11/18/16 07:28 Bedside Glucose 148 302 H 205 82 Test 11/18/16 11:30 Bedside Glucose 203 Medications Medications Current Medications Docusate Sodium (Colace) 100 mg BID PRN PO PRN; Start 11/15/16 at 01:00 Gabapentin (Neurontin) 100 mg QHS PO Last administered on 11/17/16 20:26; Admin Dose 100 MG; Start 11/15/16 at 21:00 Ibuprofen (Motrin) 600 mg TID PRN PO PRN; Start 11/15/16 at 01:00 Insulin Glargine (Lantus) 55 unit QHS SC Last administered on 11/17/16 20:34; Admin Dose 55 UNIT; Start 11/15/16 at 03:30 Lorazepam (Ativan) 2 mg TID PRN PO ANXIETY Last administered on 11/18/16 09:36 ; Admin Dose 2 MG; Start 11/15/16 at 01:00 Nystatin (Nystatin Cr) 1 applic BID TOP Last administered on 11/18/16 09:38; Admin Dose 1 APPLIC; Start 11/15/16 at 09:00 Oxycodone HCl (Oxycontin) 10 mg Q8H PO Last administered on 11/18/16 09:36; Admin Dose 10 MG; Start 11/15/16 at 01:00 Senna (Senokot) 1 tab QHS PRN PO PRN; Start 11/15/16 at 01:00 Venlafaxine HCl (Effexor Xr) 75 mg DAILY PO Last administered on 11/18/16 09: 36; Admin Dose 75 MG; Start 11/15/16 at 09:00 Quetiapine Fumarate (Seroquel) 50 mg HS PO Last administered on 11/17/16 20:26 ; Admin Dose 50 MG; Start 11/15/16 at 21:00 Vitamin B Complex/ Vitamin C (Berocca) 1 cap DAILY PO Last administered on 11/18 09:35; Admin Dose 1 CAP; Start 11/15/16 at 09:00 Diagnostic Test (Pha) (Accucheck) 1 ea 02 XX Last administered on 11/18/16 02: 38; Admin Dose 1 EA; Start 11/15/16 at 02:00 Hydromorphone HCl 1 mg 1 mg Q4H PRN IV PAIN Last administered on 11/18/16 12: 26; Admin Dose 1 MG; Start 11/15/16 at 05:00 Daptomycin 525 mg/ Sodium Chloride 100 ml @ 200 mls/hr Q24H IVPB Last administered on 11/17/16 15:28; Admin Dose 200 MLS/HR; Start 11/15/16 at 16:00 Metronidazole 250 mg/N/A 50 ml @ 50 mls/hr Q8 IVPB Last administered on 05:55; Admin Dose 50 MLS/HR; Start 11/15/16 at 15:30 Aztreonam (Azactam 1gm/NS (Pmx)) 50 ml @ 100 mls/hr Q8 IVPB Last administered on 11/18/16 13:38; Admin Dose 100 MLS/HR; Start 11/15/16 at 15:30 Silver Sulfadiazine (Thermazene 1% 25 Gm) 1 applic BID TOP Last administered on 11/18/16 09:38; Admin Dose 1 APPLIC; Start 11/15/16 at 21:00 Acetaminophen/ Hydrocodone Bitart ([place] (10/325)) 1 tab Q4H PRN NGT pain Last administered on 11/18/16 11:00; Admin Dose 1 TAB; Start 11/16/16 at 10:30 Miscellaneous Information 1 ea NOTE XX ; Start 11/17/16 at 03:00 Glucose (Glutose) 15 gm Q15M PRN PO DECREASED GLUCOSE; Start 11/17/16 at 03:00 Glucose (Glutose) 22.5 gm Q15M PRN PO DECREASED GLUCOSE; Start 11/17/16 at 03: 00 Dextrose (D50w Syringe) 25 ml Q15M PRN IV DECREASED GLUCOSE; Start 11/17/16 at 03:00 Dextrose (D50w Syringe) 50 ml Q15M PRN IV DECREASED GLUCOSE; Start 11/17/16 at 03:00 Glucagon (Glucagen) 1 mg Q15M PRN IM DECREASED GLUCOSE; Start 11/17/16 at 03:00 Glucose (Glutose) 15 gm Q15M PRN BUCCAL DECREASED GLUCOSE; Start 11/17/16 at 03 :00 Fentanyl (Duragesic 25 Mcg/Hr Patch) 1 patch Q72H TRANSDERM Last administered on 11/17/16 21:33; Admin Dose 1 PATCH; Start 11/17/16 at 21:00 ALFONZO ANDERSON MD Nov 18, 2016 14:35
[2016-11-18] MEDS: SOD CHLORIDE 0.9% IVPB SCH (16:07)
[2016-11-18] MEDS: DAPTOMYCIN IVPB SCH (16:07)
[2016-11-18 20:00] VITALS: BP 142/73; RESP 20
[2016-11-18] MEDS ORDERED: INSULIN GLARGINE [LANtus] 3 ML PEN SC SCH (21:00)
[2016-11-18] MEDS: QUETIAPINE 25 MG TAB PO SCH (21:14)
[2016-11-18] MEDS: GABAPENTIN 100 MG CAP PO SCH (21:14)
--- NOTE | 2016-11-18 22:44 | CONS ---
Date/Time of Note Date/Time of Note DATE: 11/18/16 TIME: 22:37 Assessment/Plan Assessment/Plan Problems: (1) Diabetes mellitus, insulin dependent (IDDM), controlled (2) Cellulitis of foot Status: Acute (3) Foot ulcer Status: Acute Qualifiers: Qualified Code: L97.521 - Foot ulcer, left, limited to breakdown of skin (4) Foot abscess, left Comment: Patient will be scheduled for formal incision and drainage in the operating room. (5) Hyperglycemia Status: Acute Additional Assessment/Plan Patient is at risk for limb loss. Patient may require incision and drainage of the left foot. Continue current management with IV antibiotics and dressing changes. Partial weightbearing allowed. Thank you again for involving me in the care of this patient. If you have any questions regarding this case, please feel free to contact me at pager: [phone] or reach me at mobile: [phone]. Consultation Date/Type/Reason Admit Date/Time Nov 14, 2016 at 22:08 Date of Consultation: Nov 18, 2016 Type of Consultation: Foot and ankle surgery Reason for Consultation Evaluation left foot infection. Referring Provider: TEODORA GARCIA MD Hx of Present Illness Thank you very much for involving me in the care of this patient. 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 He says that about 6 weeks ago he started to develop red spots on his left foot and he does not recall the mechanism. He denies any trauma to his feet. He says that he continued to develop redness swelling and started to have increasing pain. He reports seeing pus and eventually went to [facility] emergency. He was admitted to the hospital and was placed on IV antibiotics. Patient was seen by a residential lawn specialist who after we stated that he does not have any need for surgery but did a bedside "incision and drainage". Patient says he was released home on oral antibiotics. He says that his condition got worse and he subsequently ended up coming to [facility]. He was admitted for infection and worsening of his condition the left foot. I was consulted for evaluation and treatment. Today, patient reports pain on the dorsal aspect of his foot. Patient denies recent fever and chills. Denies recent trauma. Patient has been on IV antibiotics since his admission. As per history of present illness. Eyes: no complaints ENT: no complaints Respiratory: no complaints Cardiovascular: no complaints Gastrointestinal: no complaints Musculoskeletal: swelling Skin: erythema, skin lesions Neurologic: no complaints Psychological: no complaints Past Medical History As per history of present illness. Medical History: diabetes Past Surgical History As per history of present illness. Social History Patient reports prior alcohol abuse. He says that he quit about a year ago. He reports smoking cigarettes. Alcohol Use: none Smoking Status: Never smoker Drug Use: none Exam/Review of Systems Vital Signs Vitals Vital Signs Date Time Temp Pulse Resp B/P Pulse Ox O2 Delivery O2 Flow Rate FiO2 11/18/16 20:00 98.1 67 20 142/73 97 11/17/16 20:00 Room Air Intake and Output 11/17/16 11/17/16 11/18/16 15:00 23:00 07:00 Intake Total 1940 ml 900 ml Output Total 400 ml 450 ml Balance 1540 ml 450 ml Exam Patient is in no acute distress laying supine in bed. Left foot examined shows erythema of the dorsal aspect with multiple small wounds in various stages of healing. There is no active pus and no bleeding noted. The area is tender to palpation. There is edema of the left midfoot noted. There is no malodor present. Labs reviewed. Imaging reviewed. Right foot shows no lesions. There is no tenderness to palpation of the right foot. Protective sensation seems to be decreased to sharp dull vibratory and temperature stimuli bilaterally with normal deep tendon reflexes. MRI of the left foot shows moderate bone marrow edema with faint T1 bone marrow signal infiltrate at the lateral margins of the cuboid and calcaneus suggestive of early osteomyelitis. There is a moderate sized subcutaneous fluid collection/abscess at the dorsal margin of the midfoot. Results Result Diagram: 11/16/16 0510 11/17/16 1240 Results 24 hrs Laboratory Tests Test 11/18/16 02:38 11/18/16 07:28 11/18/16 11:30 11/18/16 15:34 Bedside Glucose 205 82 203 61 L Test 11/18/16 16:04 11/18/16 16:52 11/18/16 21:13 Bedside Glucose 95 196 94 Medications Medications Current Medications Docusate Sodium (Colace) 100 mg BID PRN PO PRN; Start 11/15/16 at 01:00 Gabapentin (Neurontin) 100 mg QHS PO Last administered on 11/18/16 21:14; Admin Dose 100 MG; Start 11/15/16 at 21:00 Ibuprofen (Motrin) 600 mg TID PRN PO PRN; Start 11/15/16 at 01:00 Lorazepam (Ativan) 2 mg TID PRN PO ANXIETY Last administered on 11/18/16 18:51 ; Admin Dose 2 MG; Start 11/15/16 at 01:00 Nystatin (Nystatin Cr) 1 applic BID TOP Last administered on 11/18/16 21:15; Admin Dose 1 APPLIC; Start 11/15/16 at 09:00 Oxycodone HCl (Oxycontin) 10 mg Q8H PO Last administered on 11/18/16 18:28; Admin Dose 10 MG; Start 11/15/16 at 01:00 Senna (Senokot) 1 tab QHS PRN PO PRN; Start 11/15/16 at 01:00 Venlafaxine HCl (Effexor Xr) 75 mg DAILY PO Last administered on 11/18/16 09: 36; Admin Dose 75 MG; Start 11/15/16 at 09:00 Quetiapine Fumarate (Seroquel) 50 mg HS PO Last administered on 11/18/16 21:14 ; Admin Dose 50 MG; Start 11/15/16 at 21:00 Vitamin B Complex/ Vitamin C (Berocca) 1 cap DAILY PO Last administered on 11/18 09:35; Admin Dose 1 CAP; Start 11/15/16 at 09:00 Diagnostic Test (Pha) (Accucheck) 1 ea 02 XX Last administered on 11/18/16 02: 38; Admin Dose 1 EA; Start 11/15/16 at 02:00 Hydromorphone HCl 1 mg 1 mg Q4H PRN IV PAIN Last administered on 11/18/16 21: 23; Admin Dose 1 MG; Start 11/15/16 at 05:00 Daptomycin 525 mg/ Sodium Chloride 100 ml @ 200 mls/hr Q24H IVPB Last administered on 11/18/16 16:07; Admin Dose 200 MLS/HR; Start 11/15/16 at 16:00 Metronidazole 250 mg/N/A 50 ml @ 50 mls/hr Q8 IVPB Last administered on 22:15; Admin Dose 50 MLS/HR; Start 11/15/16 at 15:30 Aztreonam (Azactam 1gm/NS (Pmx)) 50 ml @ 100 mls/hr Q8 IVPB Last administered on 11/18/16 21:23; Admin Dose 100 MLS/HR; Start 11/15/16 at 15:30 Silver Sulfadiazine (Thermazene 1% 25 Gm) 1 applic BID TOP Last administered on 11/18/16 21:15; Admin Dose 1 APPLIC; Start 11/15/16 at 21:00 Acetaminophen/ Hydrocodone Bitart ([place] ()) 1 tab Q4H PRN NGT pain Last administered on 11/18/16 20:07; Admin Dose 1 TAB; Start 11/16/16 at 10:30 Miscellaneous Information 1 ea NOTE XX ; Start 11/17/16 at 03:00 Glucose (Glutose) 15 gm Q15M PRN PO DECREASED GLUCOSE; Start 11/17/16 at 03:00 Glucose (Glutose) 22.5 gm Q15M PRN PO DECREASED GLUCOSE; Start 11/17/16 at 03: 00 Dextrose (D50w Syringe) 25 ml Q15M PRN IV DECREASED GLUCOSE; Start 11/17/16 at 03:00 Dextrose (D50w Syringe) 50 ml Q15M PRN IV DECREASED GLUCOSE; Start 11/17/16 at 03:00 Glucagon (Glucagen) 1 mg Q15M PRN IM DECREASED GLUCOSE; Start 11/17/16 at 03:00 Glucose (Glutose) 15 gm Q15M PRN BUCCAL DECREASED GLUCOSE; Start 11/17/16 at 03 :00 Fentanyl (Duragesic 25 Mcg/Hr Patch) 1 patch Q72H TRANSDERM Last administered on 11/17/16 21:33; Admin Dose 1 PATCH; Start 11/17/16 at 21:00 Insulin Glargine (Lantus) 30 unit HS SC Last administered on 11/18/16 21:19; Admin Dose 30 UNIT; Start 11/18/16 at 21:00 JOEY TRIANA DPM Nov 18, 2016 22:43
[2016-11-19] MEDS: oxyCODONE (CR) 10 MG TAB [oxyCONTIN] PO SCH ×3 (01:19→16:59)
[2016-11-19] MEDS: HYDROmorphONE 1 MG/ML SYG IV PRN ×6 (01:26→21:11)
[2016-11-19] MEDS ORDERED: ACCUCHECK XX SCH (02:00)
[2016-11-19] MEDS: ACCUCHECK XX SCH (02:00)
[2016-11-19] MEDS: HYDROCODONE/APAP (10/325) TAB NGT PRN ×4 (04:56→18:22)
[2016-11-19] MEDS: AZTREONAM 1 GM/NS (PMX) 50 ML IVPB SCH ×3 (05:32→21:11)
[2016-11-19] MEDS: metroNIDAZOLE 500 MG/NS (PMX) 250 MG in EVAC CONTAINER 1 BOTTLE IVPB SCH ×3 (06:17→22:22)
[2016-11-19] MEDS: LORAZEPAM 1 MG TAB PO PRN (06:53)
[2016-11-19 07:44] VITALS: BP 105/56; RESP 18
[2016-11-19] MEDS: SILVER SULFADIAZINE 1% 25 GM CR TOP SCH ×2 (08:16→21:17)
[2016-11-19] MEDS: VENLAFAXINE (XR) 75 MG CAP PO SCH (08:17)
[2016-11-19] MEDS: VITAMIN B COMPLEX/VIT C CAP PO SCH (08:17)
[2016-11-19] MEDS: NYSTATIN 15 GM CR TOP SCH ×2 (08:17→21:49)
[2016-11-19] MEDS: INSULIN ASPART [NOVOLOG] 3 ML PEN SC SCH ×7 (08:24→21:49)
--- NOTE | 2016-11-19 12:57 | CONS ---
Date/Time of Note Date/Time of Note DATE: 11/19/16 TIME: 12:55 Assessment/Plan Assessment/Plan Chief Complaint/Hosp Course SUBJECTIVE: Patient is alert, feels ok, no fevers, nad MICROBIOLOGY: Wound culture negative. Blood cultures have been negative. DIAGNOSTICS: MRI of the foot revealed possible early osteomyelitis and questionable 10 cm abscess in the mid foot. ANTIMICROBIALS: 1. Daptomycin. 2. Azactam. 3. Flagyl. PHYSICAL EXAMINATION: GENERAL: Well-nourished, well-developed, middle-aged white man who is alert, in no distress. HEENT: Head atraumatic, normocephalic. Sclerae anicteric. Buccal mucosa pink. NECK: Supple, trachea midline. CHEST: Rise symmetrical. Breath sounds clear. HEART: S1, S2. ABDOMEN: Soft, bowel tones present. EXTREMITIES: Left foot with decreased swelling and erythema. ASSESSMENT: 1. Left foot cellulitis, possible early osteomyelitis and abscess. 2. Diabetes with diabetic neuropathy. 3. Positive for tobacco use. PLAN: The patient remains stable. We will continue him on current antimicrobials, follow podiatry rec-s==> if pt has OM he will need to be on 6 weeks abx DW staff Problems: Consultation Date/Type/Reason Admit Date/Time Nov 14, 2016 at 22:08 Type of Consultation: ID Referring Provider: TEODORA GARCIA MD Exam/Review of Systems Vital Signs Vitals Vital Signs Date Time Temp Pulse Resp B/P Pulse Ox O2 Delivery O2 Flow Rate FiO2 11/19/16 07:44 98.3 70 18 105/56 94 11/17/16 20:00 Room Air Intake and Output 11/18/16 11/18/16 11/19/16 15:00 23:00 07:00 Intake Total 1490 ml 950 ml Output Total 1100 ml 900 ml Balance 390 ml 50 ml Results Result Diagram: 11/16/16 0510 11/17/16 1240 Results 24 hrs Laboratory Tests Test 11/18/16 15:34 11/18/16 16:04 11/18/16 16:52 11/18/16 21:13 Bedside Glucose 61 L 95 196 94 Test 11/19/16 05:43 11/19/16 06:09 11/19/16 06:27 11/19/16 06:50 Hemoglobin A1c 9.2 H Bedside Glucose 54 L 71 106 Test 11/19/16 07:06 11/19/16 07:36 11/19/16 11:42 Bedside Glucose 160 210 246 H Medications Medications Current Medications Docusate Sodium (Colace) 100 mg BID PRN PO PRN; Start 11/15/16 at 01:00 Gabapentin (Neurontin) 100 mg QHS PO Last administered on 11/18/16 21:14; Admin Dose 100 MG; Start 11/15/16 at 21:00 Ibuprofen (Motrin) 600 mg TID PRN PO PRN; Start 11/15/16 at 01:00 Lorazepam (Ativan) 2 mg TID PRN PO ANXIETY Last administered on 11/19/16 06:53 ; Admin Dose 2 MG; Start 11/15/16 at 01:00 Nystatin (Nystatin Cr) 1 applic BID TOP Last administered on 11/19/16 08:17; Admin Dose 1 APPLIC; Start 11/15/16 at 09:00 Oxycodone HCl (Oxycontin) 10 mg Q8H PO Last administered on 11/19/16 08:17; Admin Dose 10 MG; Start 11/15/16 at 01:00 Senna (Senokot) 1 tab QHS PRN PO PRN; Start 11/15/16 at 01:00 Venlafaxine HCl (Effexor Xr) 75 mg DAILY PO Last administered on 11/19/16 08: 17; Admin Dose 75 MG; Start 11/15/16 at 09:00 Quetiapine Fumarate (Seroquel) 50 mg HS PO Last administered on 11/18/16 21:14 ; Admin Dose 50 MG; Start 11/15/16 at 21:00 Vitamin B Complex/ Vitamin C (Berocca) 1 cap DAILY PO Last administered on 11/19 08:17; Admin Dose 1 CAP; Start 11/15/16 at 09:00 Diagnostic Test (Pha) (Accucheck) 1 ea 02 XX Last administered on 11/18/16 02: 38; Admin Dose 1 EA; Start 11/15/16 at 02:00 Hydromorphone HCl 1 mg 1 mg Q4H PRN IV PAIN Last administered on 11/19/16 09: 01; Admin Dose 1 MG; Start 11/15/16 at 05:00 Daptomycin 525 mg/ Sodium Chloride 100 ml @ 200 mls/hr Q24H IVPB Last administered on 11/18/16 16:07; Admin Dose 200 MLS/HR; Start 11/15/16 at 16:00 Metronidazole 250 mg/N/A 50 ml @ 50 mls/hr Q8 IVPB Last administered on 06:17; Admin Dose 50 MLS/HR; Start 11/15/16 at 15:30 Aztreonam (Azactam 1gm/NS (Pmx)) 50 ml @ 100 mls/hr Q8 IVPB Last administered on 11/19/16 05:32; Admin Dose 100 MLS/HR; Start 11/15/16 at 15:30 Silver Sulfadiazine (Thermazene 1% 25 Gm) 1 applic BID TOP Last administered on 11/19/16 08:16; Admin Dose 1 APPLIC; Start 11/15/16 at 21:00 Acetaminophen/ Hydrocodone Bitart ([place] (10)) 1 tab Q4H PRN NGT pain Last administered on 11/19/16 10:00; Admin Dose 1 TAB; Start 11/16/16 at 10:30 Miscellaneous Information 1 ea NOTE XX ; Start 11/17/16 at 03:00 Glucose (Glutose) 15 gm Q15M PRN PO DECREASED GLUCOSE; Start 11/17/16 at 03:00 Glucose (Glutose) 22.5 gm Q15M PRN PO DECREASED GLUCOSE; Start 11/17/16 at 03: 00 Dextrose (D50w Syringe) 25 ml Q15M PRN IV DECREASED GLUCOSE; Start 11/17/16 at 03:00 Dextrose (D50w Syringe) 50 ml Q15M PRN IV DECREASED GLUCOSE; Start 11/17/16 at 03:00 Glucagon (Glucagen) 1 mg Q15M PRN IM DECREASED GLUCOSE; Start 11/17/16 at 03:00 Glucose (Glutose) 15 gm Q15M PRN BUCCAL DECREASED GLUCOSE; Start 11/17/16 at 03 :00 Fentanyl (Duragesic 25 Mcg/Hr Patch) 1 patch Q72H TRANSDERM Last administered on 11/17/16 21:33; Admin Dose 1 PATCH; Start 11/17/16 at 21:00 Insulin Glargine (Lantus) 30 unit HS SC Last administered on 2/14/17at 21:19; Admin Dose 30 UNIT; Start 11/18/16 at 21:00 IRASEMA MORA NP Nov 19, 2016 12:56
[2016-11-19] MEDS: DAPTOMYCIN IVPB SCH (15:29)
[2016-11-19] MEDS: SOD CHLORIDE 0.9% IVPB SCH (15:29)
[2016-11-19] MEDS: HYDROmorphONE 2 MG TAB PO PRN ×2 (16:24→22:21)
--- NOTE | 2016-11-19 19:14 | PN ---
Date/Time of Note Date/Time of Note DATE: 11/19/16 TIME: 19:10 Assessment/Plan VTE Prophylaxis VTE Prophylaxis Intervention: other Assessment/Plan Chief Complaint/Hosp Course cont pain contriol iv abx poditrist f/u [id number] wants more pain meds pain consult am Problems: Exam/Review of Systems Vital Signs Vitals Vital Signs Date Time Temp Pulse Resp B/P Pulse Ox O2 Delivery O2 Flow Rate FiO2 11/19/16 07:44 98.3 70 18 105/56 94 11/17/16 20:00 Room Air Intake and Output 11/18/16 11/18/16 11/19/16 15:00 23:00 07:00 Intake Total 1490 ml 950 ml Output Total 1100 ml 900 ml Balance 390 ml 50 ml Exam Constitutional: alert Neck: supple Respiratory: clear to auscultation Cardiovascular: regular rate and rhythm Gastrointestinal: soft Results Result Diagram: 11/16/16 0510 11/17/16 1240 Results 24 hrs Laboratory Tests Test 11/18/16 21:13 11/19/16 05:43 11/19/16 06:09 11/19/16 06:27 Bedside Glucose 94 54 L 71 Hemoglobin A1c 9.2 H Test 11/19/16 06:50 11/19/16 07:06 11/19/16 07:36 11/19/16 11:42 Bedside Glucose 106 160 210 246 H Test 11/19/16 17:03 Bedside Glucose 123 Medications Medications Current Medications Docusate Sodium (Colace) 100 mg BID PRN PO PRN; Start 11/15/16 at 01:00 Gabapentin (Neurontin) 100 mg QHS PO Last administered on 11/18/16 21:14; Admin Dose 100 MG; Start 11/15/16 at 21:00 Ibuprofen (Motrin) 600 mg TID PRN PO PRN; Start 11/15/16 at 01:00 Lorazepam (Ativan) 2 mg TID PRN PO ANXIETY Last administered on 11/19/16 06:53 ; Admin Dose 2 MG; Start 11/15/16 at 01:00 Nystatin (Nystatin Cr) 1 applic BID TOP Last administered on 11/19/16 08:17; Admin Dose 1 APPLIC; Start 11/15/16 at 09:00 Oxycodone HCl (Oxycontin) 10 mg Q8H PO Last administered on 11/19/16 16:59; Admin Dose 10 MG; Start 11/15/16 at 01:00 Senna (Senokot) 1 tab QHS PRN PO PRN; Start 11/15/16 at 01:00 Venlafaxine HCl (Effexor Xr) 75 mg DAILY PO Last administered on 11/19/16 08: 17; Admin Dose 75 MG; Start 11/15/16 at 09:00 Quetiapine Fumarate (Seroquel) 50 mg HS PO Last administered on 11/18/16 21:14 ; Admin Dose 50 MG; Start 11/15/16 at 21:00 Vitamin B Complex/ Vitamin C (Berocca) 1 cap DAILY PO Last administered on 11/19 08:17; Admin Dose 1 CAP; Start 11/15/16 at 09:00 Diagnostic Test (Pha) (Accucheck) 1 ea 02 XX Last administered on 11/18/16 02: 38; Admin Dose 1 EA; Start 11/15/16 at 02:00 Hydromorphone HCl 1 mg 1 mg Q4H PRN IV PAIN Last administered on 11/19/16 16: 59; Admin Dose 1 MG; Start 11/15/16 at 05:00; Stop 11/20/16 at 00:00 Daptomycin 525 mg/ Sodium Chloride 100 ml @ 200 mls/hr Q24H IVPB Last administered on 11/19/16 15:29; Admin Dose 200 MLS/HR; Start 11/15/16 at 16:00 Metronidazole 250 mg/N/A 50 ml @ 50 mls/hr Q8 IVPB Last administered on 14:18; Admin Dose 50 MLS/HR; Start 11/15/16 at 15:30 Aztreonam (Azactam 1gm/NS (Pmx)) 50 ml @ 100 mls/hr Q8 IVPB Last administered on 11/19/16 13:15; Admin Dose 100 MLS/HR; Start 11/15/16 at 15:30 Silver Sulfadiazine (Thermazene 1% 25 Gm) 1 applic BID TOP Last administered on 11/19/16 08:16; Admin Dose 1 APPLIC; Start 11/15/16 at 21:00 Acetaminophen/ Hydrocodone Bitart ([place] (10/325)) 1 tab Q4H PRN NGT pain Last administered on 11/19/16 18:22; Admin Dose 1 TAB; Start 11/16/16 at 10:30 Miscellaneous Information 1 ea NOTE XX ; Start 11/17/16 at 03:00 Glucose (Glutose) 15 gm Q15M PRN PO DECREASED GLUCOSE; Start 11/17/16 at 03:00 Glucose (Glutose) 22.5 gm Q15M PRN PO DECREASED GLUCOSE; Start 11/17/16 at 03: 00 Dextrose (D50w Syringe) 25 ml Q15M PRN IV DECREASED GLUCOSE; Start 11/17/16 at 03:00 Dextrose (D50w Syringe) 50 ml Q15M PRN IV DECREASED GLUCOSE; Start 11/17/16 at 03:00 Glucagon (Glucagen) 1 mg Q15M PRN IM DECREASED GLUCOSE; Start 11/17/16 at 03:00 Glucose (Glutose) 15 gm Q15M PRN BUCCAL DECREASED GLUCOSE; Start 11/17/16 at 03 :00 Fentanyl (Duragesic 25 Mcg/Hr Patch) 1 patch Q72H TRANSDERM Last administered on 11/17/16 21:33; Admin Dose 1 PATCH; Start 11/17/16 at 21:00 Insulin Glargine (Lantus) 20 unit HS SC ; Start 11/19/16 at 21:00 Hydromorphone HCl (Dilaudid) 6 mg Q6H PRN PO pain Last administered on 16:24; Admin Dose 6 MG; Start 11/19/16 at 16:00 ALFONZO ANDESRON MD Nov 19, 2016 19:14
[2016-11-19 19:50] VITALS: BP 122/77; RESP 20
[2016-11-19] MEDS: QUETIAPINE 25 MG TAB PO SCH (21:16)
[2016-11-19] MEDS: GABAPENTIN 100 MG CAP PO SCH (21:16)
[2016-11-19] MEDS: INSULIN GLARGINE [LANtus] 3 ML PEN SC SCH (21:48)
[2016-11-20] MEDS: oxyCODONE (CR) 10 MG TAB [oxyCONTIN] PO SCH ×3 (01:16→17:26)
[2016-11-20] MEDS: ACCUCHECK XX SCH (02:08)
[2016-11-20] MEDS: HYDROCODONE/APAP (10/325) TAB NGT PRN ×5 (02:40→20:45)
[2016-11-20] MEDS: LORAZEPAM 1 MG TAB PO PRN ×2 (04:07→20:46)
[2016-11-20] MEDS: HYDROmorphONE 2 MG TAB PO PRN ×4 (04:46→23:04)
[2016-11-20] MEDS: metroNIDAZOLE 500 MG/NS (PMX) 250 MG in EVAC CONTAINER 1 BOTTLE IVPB SCH ×3 (05:00→22:27)
[2016-11-20] MEDS: AZTREONAM 1 GM/NS (PMX) 50 ML IVPB SCH ×3 (06:05→22:05)
[2016-11-20 08:00] VITALS: BP 118/67; RESP 22
[2016-11-20] MEDS: VENLAFAXINE (XR) 75 MG CAP PO SCH (08:09)
[2016-11-20] MEDS: VITAMIN B COMPLEX/VIT C CAP PO SCH (08:09)
[2016-11-20] MEDS: NYSTATIN 15 GM CR TOP SCH ×2 (08:10→21:00)
[2016-11-20] MEDS: SILVER SULFADIAZINE 1% 25 GM CR TOP SCH ×2 (08:11→22:02)
[2016-11-20] MEDS: INSULIN ASPART [NOVOLOG] 3 ML PEN SC SCH ×7 (08:20→22:18)
--- NOTE | 2016-11-20 13:19 | CONS ---
Date/Time of Note Date/Time of Note DATE: 11/20/16 TIME: 13:18 Assessment/Plan Assessment/Plan Chief Complaint/Hosp Course SUBJECTIVE: Patient is alert, feels ok, no fevers, nad MICROBIOLOGY: Wound culture negative. Blood cultures have been negative. DIAGNOSTICS: MRI of the foot revealed possible early osteomyelitis and questionable 10 cm abscess in the mid foot. ANTIMICROBIALS: 1. Daptomycin. 2. Azactam. 3. Flagyl. PHYSICAL EXAMINATION: GENERAL: Well-nourished, well-developed, middle-aged white man who is alert, in no distress. HEENT: Head atraumatic, normocephalic. Sclerae anicteric. Buccal mucosa pink. NECK: Supple, trachea midline. CHEST: Rise symmetrical. Breath sounds clear. HEART: S1, S2. ABDOMEN: Soft, bowel tones present. EXTREMITIES: Left foot with decreased swelling and erythema. ASSESSMENT: 1. Left foot cellulitis, possible early osteomyelitis and abscess. 2. Diabetes with diabetic neuropathy. 3. Positive for tobacco use. PLAN: The patient remains stable. We will continue him on current antimicrobials, follow podiatry rec-s==> if pt has OM he will need to be on 6 weeks abx. ?need debridement per podiatry note DW pt Problems: Consultation Date/Type/Reason Admit Date/Time Nov 14, 2016 at 22:08 Type of Consultation: ID Referring Provider: TEODORA GARCIA MD Exam/Review of Systems Vital Signs Vitals Vital Signs Date Time Temp Pulse Resp B/P Pulse Ox O2 Delivery O2 Flow Rate FiO2 11/20/16 08:00 98.3 67 22 118/67 94 11/17/16 20:00 Room Air Intake and Output 11/19/16 11/19/16 11/20/16 15:00 23:00 07:00 Intake Total 2230 ml 870 ml Output Total 600 ml Balance 2230 ml 270 ml Results Result Diagram: 11/16/16 0510 11/17/16 1240 Results 24 hrs Laboratory Tests Test 11/19/16 17:03 11/19/16 21:29 11/20/16 01:17 11/20/16 06:11 Bedside Glucose 123 257 H 250 H 180 Test 11/20/16 07:52 11/20/16 11:44 Bedside Glucose 230 H 129 Medications Medications Current Medications Docusate Sodium (Colace) 100 mg BID PRN PO PRN; Start 11/15/16 at 01:00 Gabapentin (Neurontin) 100 mg QHS PO Last administered on 11/19/16 21:16; Admin Dose 100 MG; Start 11/15/16 at 21:00 Ibuprofen (Motrin) 600 mg TID PRN PO PRN; Start 11/15/16 at 01:00 Lorazepam (Ativan) 2 mg TID PRN PO ANXIETY Last administered on 11/20/16 04:07 ; Admin Dose 2 MG; Start 11/15/16 at 01:00 Nystatin (Nystatin Cr) 1 applic BID TOP Last administered on 11/20/16 08:10; Admin Dose 1 APPLIC; Start 11/15/16 at 09:00 Oxycodone HCl (Oxycontin) 10 mg Q8H PO Last administered on 11/20/16 08:09; Admin Dose 10 MG; Start 11/15/16 at 01:00 Senna (Senokot) 1 tab QHS PRN PO PRN; Start 11/15/16 at 01:00 Venlafaxine HCl (Effexor Xr) 75 mg DAILY PO Last administered on 11/20/16 08: 09; Admin Dose 75 MG; Start 11/15/16 at 09:00 Quetiapine Fumarate (Seroquel) 50 mg HS PO Last administered on 11/19/16 21:16 ; Admin Dose 50 MG; Start 11/15/16 at 21:00 Vitamin B Complex/ Vitamin C (Berocca) 1 cap DAILY PO Last administered on 11/20 08:09; Admin Dose 1 CAP; Start 11/15/16 at 09:00 Diagnostic Test (Pha) 1 ea 1 ea 02 XX Last administered on 11/20/16 02:08; Admin Dose 1 EA; Start 11/15/16 at 02:00 Daptomycin 525 mg/ Sodium Chloride 100 ml @ 200 mls/hr Q24H IVPB Last administered on 11/19/16 15:29; Admin Dose 200 MLS/HR; Start 11/15/16 at 16:00 Metronidazole 250 mg/N/A 50 ml @ 50 mls/hr Q8 IVPB Last administered on 05:00; Admin Dose 50 MLS/HR; Start 11/15/16 at 15:30 Aztreonam (Azactam 1gm/NS (Pmx)) 50 ml @ 100 mls/hr Q8 IVPB Last administered on 11/20/16 06:05; Admin Dose 100 MLS/HR; Start 11/15/16 at 15:30 Silver Sulfadiazine (Thermazene 1% 25 Gm) 1 applic BID TOP Last administered on 11/20/16 08:11; Admin Dose 1 APPLIC; Start 11/15/16 at 21:00 Acetaminophen/ Hydrocodone Bitart ([place] (10325)) 1 tab Q4H PRN NGT pain Last administered on 11/20/16 06:53; Admin Dose 1 TAB; Start 11/16/16 at 10:30 Miscellaneous Information 1 ea NOTE XX ; Start 11/17/16 at 03:00 Glucose (Glutose) 15 gm Q15M PRN PO DECREASED GLUCOSE; Start 11/17/16 at 03:00 Glucose (Glutose) 22.5 gm Q15M PRN PO DECREASED GLUCOSE; Start 11/17/16 at 03: 00 Dextrose (D50w Syringe) 25 ml Q15M PRN IV DECREASED GLUCOSE; Start 11/17/16 at 03:00 Dextrose (D50w Syringe) 50 ml Q15M PRN IV DECREASED GLUCOSE; Start 11/17/16 at 03:00 Glucagon (Glucagen) 1 mg Q15M PRN IM DECREASED GLUCOSE; Start 11/17/16 at 03:00 Glucose (Glutose) 15 gm Q15M PRN BUCCAL DECREASED GLUCOSE; Start 11/17/16 at 03 :00 Fentanyl (Duragesic 25 Mcg/Hr Patch) 1 patch Q72H TRANSDERM Last administered on 11/17/16 21:33; Admin Dose 1 PATCH; Start 11/17/16 at 21:00 Insulin Glargine (Lantus) 20 unit HS SC Last administered on 11/19/16 21:48; Admin Dose 20 UNIT; Start 11/19/16 at 21:00 Hydromorphone HCl (Dilaudid) 6 mg Q6H PRN PO pain Last administered on 11:01; Admin Dose 6 MG; Start 11/19/16 at 16:00 IRASEMA MORA NP Nov 20, 2016 13:19
--- NOTE | 2016-11-20 15:34 | PN ---
Date/Time of Note Date/Time of Note DATE: 11/20/16 TIME: 15:33 Assessment/Plan VTE Prophylaxis VTE Prophylaxis Intervention: other Lines/Catheters IV Catheter Type (from Nrsg): PICC Line Central line still needed: Yes Reason Cath still needed: other (indicate) Assessment/Plan Chief Complaint/Hosp Course FOOT WOUND DM PLAN PER ID AND PODIATRY Problems: Subjective 24 Hr Interval Summary Respiratory: no complaints Cardiovascular: no complaints Gastrointestinal: no complaints Exam/Review of Systems Vital Signs Vitals Vital Signs Date Time Temp Pulse Resp B/P Pulse Ox O2 Delivery O2 Flow Rate FiO2 11/20/16 08:00 98.3 67 22 118/67 94 11/17/16 20:00 Room Air Intake and Output 11/19/16 11/19/16 11/20/16 15:00 23:00 07:00 Intake Total 2230 ml 870 ml Output Total 600 ml Balance 2230 ml 270 ml Exam Neck: supple Respiratory: clear to auscultation Cardiovascular: regular rate and rhythm Gastrointestinal: soft Results Result Diagram: 11/16/16 0510 11/17/16 1240 Results 24 hrs Laboratory Tests Test 11/19/16 17:03 11/19/16 21:29 11/20/16 01:17 11/20/16 06:11 Bedside Glucose 123 257 H 250 H 180 Test 11/20/16 07:52 11/20/16 11:44 Bedside Glucose 230 H 129 Medications Medications Current Medications Docusate Sodium (Colace) 100 mg BID PRN PO PRN; Start 11/15/16 at 01:00 Gabapentin (Neurontin) 100 mg QHS PO Last administered on 11/19/16 21:16; Admin Dose 100 MG; Start 11/15/16 at 21:00 Ibuprofen (Motrin) 600 mg TID PRN PO PRN; Start 11/15/16 at 01:00 Lorazepam (Ativan) 2 mg TID PRN PO ANXIETY Last administered on 11/20/16 04:07 ; Admin Dose 2 MG; Start 11/15/16 at 01:00 Nystatin (Nystatin Cr) 1 applic BID TOP Last administered on 11/20/16 08:10; Admin Dose 1 APPLIC; Start 11/15/16 at 09:00 Oxycodone HCl (Oxycontin) 10 mg Q8H PO Last administered on 11/20/16 08:09; Admin Dose 10 MG; Start 11/15/16 at 01:00 Senna (Senokot) 1 tab QHS PRN PO PRN; Start 11/15/16 at 01:00 Venlafaxine HCl (Effexor Xr) 75 mg DAILY PO Last administered on 11/20/16 08: 09; Admin Dose 75 MG; Start 11/15/16 at 09:00 Quetiapine Fumarate (Seroquel) 50 mg HS PO Last administered on 11/19/16 21:16 ; Admin Dose 50 MG; Start 11/15/16 at 21:00 Vitamin B Complex/ Vitamin C (Berocca) 1 cap DAILY PO Last administered on 11/20 08:09; Admin Dose 1 CAP; Start 11/15/16 at 09:00 Diagnostic Test (Pha) 1 ea 1 ea 02 XX Last administered on 11/20/16 02:08; Admin Dose 1 EA; Start 11/15/16 at 02:00 Daptomycin 525 mg/ Sodium Chloride 100 ml @ 200 mls/hr Q24H IVPB Last administered on 11/19/16 15:29; Admin Dose 200 MLS/HR; Start 11/15/16 at 16:00 Metronidazole 250 mg/N/A 50 ml @ 50 mls/hr Q8 IVPB Last administered on 15:10; Admin Dose 50 MLS/HR; Start 11/15/16 at 15:30 Aztreonam (Azactam 1gm/NS (Pmx)) 50 ml @ 100 mls/hr Q8 IVPB Last administered on 11/20/16 14:16; Admin Dose 100 MLS/HR; Start 11/15/16 at 15:30 Silver Sulfadiazine (Thermazene 1% 25 Gm) 1 applic BID TOP Last administered on 11/20/16 08:11; Admin Dose 1 APPLIC; Start 11/15/16 at 21:00 Acetaminophen/ Hydrocodone Bitart ([place] (10/325)) 1 tab Q4H PRN NGT pain Last administered on 11/20/16 14:16; Admin Dose 1 TAB; Start 11/16/16 at 10:30 Miscellaneous Information 1 ea NOTE XX ; Start 11/17/16 at 03:00 Glucose (Glutose) 15 gm Q15M PRN PO DECREASED GLUCOSE; Start 11/17/16 at 03:00 Glucose (Glutose) 22.5 gm Q15M PRN PO DECREASED GLUCOSE; Start 11/17/16 at 03: 00 Dextrose (D50w Syringe) 25 ml Q15M PRN IV DECREASED GLUCOSE; Start 11/17/16 at 03:00 Dextrose (D50w Syringe) 50 ml Q15M PRN IV DECREASED GLUCOSE; Start 11/17/16 at 03:00 Glucagon (Glucagen) 1 mg Q15M PRN IM DECREASED GLUCOSE; Start 11/17/16 at 03:00 Glucose (Glutose) 15 gm Q15M PRN BUCCAL DECREASED GLUCOSE; Start 11/17/16 at 03 :00 Fentanyl (Duragesic 25 Mcg/Hr Patch) 1 patch Q72H TRANSDERM Last administered on 11/17/16 21:33; Admin Dose 1 PATCH; Start 11/17/16 at 21:00 Insulin Glargine (Lantus) 20 unit HS SC Last administered on 11/19/16 21:48; Admin Dose 20 UNIT; Start 11/19/16 at 21:00 Hydromorphone HCl (Dilaudid) 6 mg Q6H PRN PO pain Last administered on 11:01; Admin Dose 6 MG; Start 11/19/16 at 16:00 TEODORA GARCIA MD Nov 20, 2016 15:34
[2016-11-20] MEDS: DAPTOMYCIN IVPB SCH (16:42)
[2016-11-20] MEDS: SOD CHLORIDE 0.9% IVPB SCH (16:42)
[2016-11-20 19:50] VITALS: BP 129/76; RESP 20
[2016-11-20] MEDS: GABAPENTIN 100 MG CAP PO SCH (21:59)
[2016-11-20] MEDS: QUETIAPINE 25 MG TAB PO SCH (21:59)
[2016-11-20] MEDS: INSULIN GLARGINE [LANtus] 3 ML PEN SC SCH (22:19)
[2016-11-20] MEDS ORDERED: INSULIN ASPART [NOVOLOG] 3 ML PEN SC ONE (23:00)
--- NOTE | 2016-11-20 23:48 | PN ---
Date/Time of Note Date/Time of Note DATE: 11/20/16 TIME: 23:48 Assessment/Plan Lines/Catheters [facility]from [facility]): PICC Line Assessment/Plan Chief Complaint/Hosp Course Thank you very much for involving me in the care of this patient. 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 He says that about 6 weeks ago he started to develop red spots on his left foot and he does not recall the mechanism. He denies any trauma to his feet. He says that he continued to develop redness swelling and started to have increasing pain. He reports seeing pus and eventually went to [facility] emergency. He was admitted to the hospital and was placed on IV antibiotics. Patient was seen by a rugby union footballer who after we stated that he does not have any need for surgery but did a bedside "incision and drainage". Patient says he was released home on oral antibiotics. He says that his condition got worse and he subsequently ended up coming to [facility]. He was admitted for infection and worsening of his condition the left foot. I was consulted for evaluation and treatment. Today, patient reports pain on the dorsal aspect of his foot. Patient denies recent fever and chills. Denies recent trauma. Patient has been on IV antibiotics since his admission. Problems: Exam/Review of Systems Vital Signs Vitals Vital Signs Date Time Temp Pulse Resp B/P Pulse Ox O2 Delivery O2 Flow Rate FiO2 11/20/16 19:50 98.3 63 20 129/76 97 11/17/16 20:00 Room Air Intake and Output 11/19/16 11/19/16 11/20/16 15:00 23:00 07:00 Intake Total 2230 ml 870 ml Output Total 600 ml Balance 2230 ml 270 ml Results Result Diagram: 11/16/16 0510 11/17/16 1240 JOEY TRIANA DPM Nov 20, 2016 23:48
[2016-11-21] VITALS (10 sets, daily range): BP systolic 118–140; BP diastolic 67–83; PULSE 66–74; RESP 13–24
[2016-11-21] MEDS: oxyCODONE (CR) 10 MG TAB [oxyCONTIN] PO SCH ×3 (01:16→17:29)
[2016-11-21] MEDS: HYDROCODONE/APAP (10/325) TAB NGT PRN ×3 (01:24→15:17)
[2016-11-21] MEDS: ACCUCHECK XX SCH (02:00)
[2016-11-21] MEDS: HYDROmorphONE 2 MG TAB PO PRN ×3 (05:57→22:24)
[2016-11-21] MEDS: metroNIDAZOLE 500 MG/NS (PMX) 250 MG in EVAC CONTAINER 1 BOTTLE IVPB SCH ×3 (05:58→23:22)
[2016-11-21] MEDS: AZTREONAM 1 GM/NS (PMX) 50 ML IVPB SCH ×3 (05:58→22:25)
[2016-11-21 07:17] LABS: CREATININE 0.69 mg/dl (0.61-1.24)
[2016-11-21] MEDS: VENLAFAXINE (XR) 75 MG CAP PO SCH (08:36)
[2016-11-21] MEDS: VITAMIN B COMPLEX/VIT C CAP PO SCH (08:36)
[2016-11-21] MEDS: NYSTATIN 15 GM CR TOP SCH ×2 (08:38→21:00)
[2016-11-21] MEDS: SILVER SULFADIAZINE 1% 25 GM CR TOP SCH ×2 (08:39→21:00)
[2016-11-21] MEDS: INSULIN ASPART [NOVOLOG] 3 ML PEN SC SCH ×8 (08:42→22:34)
[2016-11-21] MEDS ORDERED: HYDROmorphONE 1 MG/ML SYG IV STA (11:13)
--- NOTE | 2016-11-21 12:54 | CONS ---
Date/Time of Note Date/Time of Note DATE: 11/21/16 TIME: 12:53 Assessment/Plan Assessment/Plan Chief Complaint/Hosp Course SUBJECTIVE: Patient is alert, feels ok, no fevers, nad MICROBIOLOGY: Wound culture negative. Blood cultures have been negative. DIAGNOSTICS: MRI of the foot revealed possible early osteomyelitis and questionable 10 cm abscess in the mid foot. ANTIMICROBIALS: 1. Daptomycin. 2. Azactam. 3. Flagyl. PHYSICAL EXAMINATION: GENERAL: Well-nourished, well-developed, middle-aged white man who is alert, in no distress. HEENT: Head atraumatic, normocephalic. Sclerae anicteric. Buccal mucosa pink. NECK: Supple, trachea midline. CHEST: Rise symmetrical. Breath sounds clear. HEART: S1, S2. ABDOMEN: Soft, bowel tones present. EXTREMITIES: Left foot with decreased swelling and erythema. ASSESSMENT: 1. Left foot cellulitis, possible early osteomyelitis and abscess. 2. Diabetes with diabetic neuropathy. 3. Positive for tobacco use. PLAN: The patient remains stable. Plan for surgery today, will dw length of abx with Dr Man ==> if pt has OM he will need to be on 6 weeks abx. DW pt Problems: Consultation Date/Type/Reason Admit Date/Time Nov 14, 2016 at 22:08 Type of Consultation: ID Referring Provider: TEODORA GARCIA MD Exam/Review of Systems Vital Signs Vitals Vital Signs Date Time Temp Pulse Resp B/P Pulse Ox O2 Delivery O2 Flow Rate FiO2 11/21/16 07:43 98.9 72 18 122/72 97 11/17/16 20:00 Room Air Intake and Output 11/20/16 11/20/16 11/21/16 15:00 23:00 07:00 Intake Total 50 ml 1350 ml 990 ml Output Total 600 ml Balance 50 ml 1350 ml 390 ml Results Result Diagram: 11/21/16 0550 Results 24 hrs Laboratory Tests Test 11/20/16 17:26 11/20/16 22:13 11/21/16 02:56 11/21/16 05:50 Bedside Glucose 185 317 H 259 H Blood Urea Nitrogen 19 Creatinine 0.69 Test 11/21/16 07:58 11/21/16 11:37 Bedside Glucose 260 H 339 H Medications Medications Current Medications Docusate Sodium (Colace) 100 mg BID PRN PO PRN; Start 11/15/16 at 01:00 Gabapentin (Neurontin) 100 mg QHS PO Last administered on 11/20/16 21:59; Admin Dose 100 MG; Start 11/15/16 at 21:00 Ibuprofen (Motrin) 600 mg TID PRN PO PRN; Start 11/15/16 at 01:00 Lorazepam (Ativan) 2 mg TID PRN PO ANXIETY Last administered on 11/20/16 20:46 ; Admin Dose 2 MG; Start 11/15/16 at 01:00 Nystatin (Nystatin Cr) 1 applic BID TOP Last administered on 11/21/16 08:38; Admin Dose 1 APPLIC; Start 11/15/16 at 09:00 Oxycodone HCl (Oxycontin) 10 mg Q8H PO Last administered on 11/21/16 08:36; Admin Dose 10 MG; Start 11/15/16 at 01:00 Senna (Senokot) 1 tab QHS PRN PO PRN; Start 11/15/16 at 01:00 Venlafaxine HCl (Effexor Xr) 75 mg DAILY PO Last administered on 11/21/16 08: 36; Admin Dose 75 MG; Start 11/15/16 at 09:00 Quetiapine Fumarate (Seroquel) 50 mg HS PO Last administered on 11/20/16 21:59 ; Admin Dose 50 MG; Start 11/15/16 at 21:00 Vitamin B Complex/ Vitamin C (Berocca) 1 cap DAILY PO Last administered on 11/21 08:36; Admin Dose 1 CAP; Start 11/15/16 at 09:00 Diagnostic Test (Pha) 1 ea 1 ea 02 XX Last administered on 11/20/16 02:08; Admin Dose 1 EA; Start 11/15/16 at 02:00 Daptomycin 525 mg/ Sodium Chloride 100 ml @ 200 mls/hr Q24H IVPB Last administered on 11/20/16 16:42; Admin Dose 200 MLS/HR; Start 11/15/16 at 16:00 Metronidazole 250 mg/N/A 50 ml @ 50 mls/hr Q8 IVPB Last administered on 05:58; Admin Dose 50 MLS/HR; Start 11/15/16 at 15:30 Aztreonam (Azactam 1gm/NS (Pmx)) 50 ml @ 100 mls/hr Q8 IVPB Last administered on 11/21/16 05:58; Admin Dose 100 MLS/HR; Start 11/15/16 at 15:30 Silver Sulfadiazine (Thermazene 1% 25 Gm) 1 applic BID TOP Last administered on 11/21/16 08:39; Admin Dose 1 APPLIC; Start 11/15/16 at 21:00 Acetaminophen/ Hydrocodone Bitart ([place] (10)) 1 tab Q4H PRN NGT pain Last administered on 11/21/16 09:55; Admin Dose 1 TAB; Start 11/16/16 at 10:30 Miscellaneous Information 1 ea NOTE XX ; Start 11/17/16 at 03:00 Glucose (Glutose) 15 gm Q15M PRN PO DECREASED GLUCOSE; Start 11/17/16 at 03:00 Glucose (Glutose) 22.5 gm Q15M PRN PO DECREASED GLUCOSE; Start 11/17/16 at 03: 00 Dextrose (D50w Syringe) 25 ml Q15M PRN IV DECREASED GLUCOSE; Start 11/17/16 at 03:00 Dextrose (D50w Syringe) 50 ml Q15M PRN IV DECREASED GLUCOSE; Start 11/17/16 at 03:00 Glucagon (Glucagen) 1 mg Q15M PRN IM DECREASED GLUCOSE; Start 11/17/16 at 03:00 Glucose (Glutose) 15 gm Q15M PRN BUCCAL DECREASED GLUCOSE; Start 11/17/16 at 03 :00 Fentanyl (Duragesic 25 Mcg/Hr Patch) 1 patch Q72H TRANSDERM Last administered on 11/20/16 23:24; Admin Dose 1 PATCH; Start 11/17/16 at 21:00 Hydromorphone HCl (Dilaudid) 6 mg Q6H PRN PO pain Last administered on 05:57; Admin Dose 6 MG; Start 11/19/16 at 16:00 Insulin Glargine (Lantus) 25 unit HS SC ; Start 11/21/16 at 21:00 IRASEMA MORA NP Nov 21, 2016 12:54
--- NOTE | 2016-11-21 13:54 | PN ---
Date/Time of Note Date/Time of Note DATE: 11/21/16 TIME: 13:53 Assessment/Plan VTE Prophylaxis VTE Prophylaxis Intervention: other Lines/Catheters IV Catheter Type (from Nrsg): PICC Line Central line still needed: Yes Assessment/Plan Chief Complaint/Hosp Course FOOT WOUND DM PLAN PER ID AND PODIATRY ANTIBIOTIC Problems: Subjective 24 Hr Interval Summary Respiratory: no complaints Cardiovascular: no complaints Musculoskeletal: other (foot PAIN +) Exam/Review of Systems Vital Signs Vitals Vital Signs Date Time Temp Pulse Resp B/P Pulse Ox O2 Delivery O2 Flow Rate FiO2 11/21/16 07:43 98.9 72 18 122/72 97 11/17/16 20:00 Room Air Intake and Output 11/20/16 11/20/16 11/21/16 15:00 23:00 07:00 Intake Total 50 ml 1350 ml 990 ml Output Total 600 ml Balance 50 ml 1350 ml 390 ml Exam Respiratory: clear to auscultation Cardiovascular: regular rate and rhythm Gastrointestinal: soft Musculoskeletal: nl extremities to inspection Extremities: normal pulses Results Result Diagram: 11/21/16 0550 Results 24 hrs Laboratory Tests Test 11/20/16 17:26 11/20/16 22:13 11/21/16 02:56 11/21/16 05:50 Bedside Glucose 185 317 H 259 H Blood Urea Nitrogen 19 Creatinine 0.69 Test 11/21/16 07:58 11/21/16 11:37 Bedside Glucose 260 H 339 H Medications Medications Current Medications Docusate Sodium (Colace) 100 mg BID PRN PO PRN; Start 11/15/16 at 01:00 Gabapentin (Neurontin) 100 mg QHS PO Last administered on 11/20/16 21:59; Admin Dose 100 MG; Start 11/15/16 at 21:00 Ibuprofen (Motrin) 600 mg TID PRN PO PRN; Start 11/15/16 at 01:00 Lorazepam (Ativan) 2 mg TID PRN PO ANXIETY Last administered on 11/20/16 20:46 ; Admin Dose 2 MG; Start 11/15/16 at 01:00 Nystatin (Nystatin Cr) 1 applic BID TOP Last administered on 11/21/16 08:38; Admin Dose 1 APPLIC; Start 11/15/16 at 09:00 Oxycodone HCl (Oxycontin) 10 mg Q8H PO Last administered on 11/21/16 08:36; Admin Dose 10 MG; Start 11/15/16 at 01:00 Senna (Senokot) 1 tab QHS PRN PO PRN; Start 11/15/16 at 01:00 Venlafaxine HCl (Effexor Xr) 75 mg DAILY PO Last administered on 11/21/16 08: 36; Admin Dose 75 MG; Start 11/15/16 at 09:00 Quetiapine Fumarate (Seroquel) 50 mg HS PO Last administered on 11/20/16 21:59 ; Admin Dose 50 MG; Start 11/15/16 at 21:00 Vitamin B Complex/ Vitamin C (Berocca) 1 cap DAILY PO Last administered on 11/21 08:36; Admin Dose 1 CAP; Start 11/15/16 at 09:00 Diagnostic Test (Pha) 1 ea 1 ea 02 XX Last administered on 11/20/16 02:08; Admin Dose 1 EA; Start 11/15/16 at 02:00 Daptomycin 525 mg/ Sodium Chloride 100 ml @ 200 mls/hr Q24H IVPB Last administered on 11/20/16 16:42; Admin Dose 200 MLS/HR; Start 11/15/16 at 16:00 Metronidazole 250 mg/N/A 50 ml @ 50 mls/hr Q8 IVPB Last administered on 05:58; Admin Dose 50 MLS/HR; Start 11/15/16 at 15:30 Aztreonam (Azactam 1gm/NS (Pmx)) 50 ml @ 100 mls/hr Q8 IVPB Last administered on 11/21/16 05:58; Admin Dose 100 MLS/HR; Start 11/15/16 at 15:30 Silver Sulfadiazine (Thermazene 1% 25 Gm) 1 applic BID TOP Last administered on 11/21/16 08:39; Admin Dose 1 APPLIC; Start 11/15/16 at 21:00 Acetaminophen/ Hydrocodone Bitart ([place] (10/325)) 1 tab Q4H PRN NGT pain Last administered on 11/21/16 09:55; Admin Dose 1 TAB; Start 11/16/16 at 10:30 Miscellaneous Information 1 ea NOTE XX ; Start 2/13/17 at 03:00 Glucose (Glutose) 15 gm Q15M PRN PO DECREASED GLUCOSE; Start 11/17/16 at 03:00 Glucose (Glutose) 22.5 gm Q15M PRN PO DECREASED GLUCOSE; Start 11/17/16 at 03: 00 Dextrose (D50w Syringe) 25 ml Q15M PRN IV DECREASED GLUCOSE; Start 11/17/16 at 03:00 Dextrose (D50w Syringe) 50 ml Q15M PRN IV DECREASED GLUCOSE; Start 11/17/16 at 03:00 Glucagon (Glucagen) 1 mg Q15M PRN IM DECREASED GLUCOSE; Start 11/17/16 at 03:00 Glucose (Glutose) 15 gm Q15M PRN BUCCAL DECREASED GLUCOSE; Start 11/17/16 at 03 :00 Fentanyl (Duragesic 25 Mcg/Hr Patch) 1 patch Q72H TRANSDERM Last administered on 11/20/16 23:24; Admin Dose 1 PATCH; Start 11/17/16 at 21:00 Hydromorphone HCl (Dilaudid) 6 mg Q6H PRN PO pain Last administered on 05:57; Admin Dose 6 MG; Start 11/19/16 at 16:00 Insulin Glargine (Lantus) 25 unit HS SC ; Start 11/21/16 at 21:00 TEODORA GARCIA MD Nov 21, 2016 13:54
[2016-11-21] MEDS: SOD CHLORIDE 0.9% IVPB SCH (17:29)
[2016-11-21] MEDS: DAPTOMYCIN IVPB SCH (17:29)
[2016-11-21] MEDS ORDERED: ONDANSETRON 4 MG INJ IV PRN (20:00)
[2016-11-21] MEDS ORDERED: FENTAnyl 50 MCG/ML VIAL IV PRN ×2 (20:00)
[2016-11-21] MEDS ORDERED: MEPERIDINE 25 MG INJ IV PRN (20:00)
[2016-11-21] MEDS ORDERED: METOCLOPRAMIDE 10 MG INJ IV PRN (20:00)
[2016-11-21] MEDS ORDERED: MIDAZOLAM 1 MG/ML 2 ML INJ IV PRN (20:00)
[2016-11-21] MEDS ORDERED: DIPHENHYDRAMINE 50 MG INJ IV PRN (20:00)
[2016-11-21] MEDS ORDERED: morphine (1 MG/ML) 10ML SYRINGE IV PRN (20:00)
[2016-11-21] MEDS ORDERED: LIDOCAINE 2% (SDV) 5 ML INJ ONE (20:01)
[2016-11-21] MEDS ORDERED: PROPOFOL 20 ML ONE (20:01)
[2016-11-21] MEDS ORDERED: MEPERIDINE 100 MG INJ ONE (20:02)
--- NOTE | 2016-11-21 20:51 | PN ---
Date/Time of Note Date/Time of Note DATE: 11/21/16 TIME: 20:50 Assessment/Plan Lines/Catheters IV [facility] Type (from [facility] PICC Line Assessment/Plan Chief Complaint/Hosp Course Thank you very much for involving me in the care of this patient. 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 He says that about 6 weeks ago he started to develop red spots on his left foot and he does not recall the mechanism. He denies any trauma to his feet. He says that he continued to develop redness swelling and started to have increasing pain. He reports seeing pus and eventually went to [facility] emergency. He was admitted to the hospital and was placed on IV antibiotics. Patient was seen by a development disability specialist who after we stated that he does not have any need for surgery but did a bedside "incision and drainage". Patient says he was released home on oral antibiotics. He says that his condition got worse and he subsequently ended up coming to [facility]. He was admitted for infection and worsening of his condition the left foot. I was consulted for evaluation and treatment. Today, patient reports pain on the dorsal aspect of his foot. Patient denies recent fever and chills. Denies recent trauma. Patient has been on IV antibiotics since his admission. Problems: Exam/Review of Systems Vital Signs Vitals Vital Signs Date Time Temp Pulse Resp B/P Pulse Ox O2 Delivery O2 Flow Rate FiO2 11/21/16 07:43 98.9 72 18 122/72 97 11/17/16 20:00 Room Air Intake and Output 11/20/16 11/20/16 11/21/16 15:00 23:00 07:00 Intake Total 50 ml 1350 ml 990 ml Output Total 600 ml Balance 50 ml 1350 ml 390 ml Results Result Diagram: 11/21/16 0550 JOEY TRIANA DPM Nov 21, 2016 20:50
[2016-11-21] MEDS ORDERED: POLYMYXIN/BACITRACIN 1L IRRIG IRR ONE (20:54)
--- NOTE | 2016-11-21 20:56 | OPR ---
Date/Time of Note Date/Time of Note DATE: 11/21/16 TIME: 20:50 Operative Report Procedure Date: Nov 21, 2016 Preoperative Diagnosis Abscess left foot Cellulitis left foot Diabetes type 1 Peripheral neuropathy Postoperative Diagnosis Abscess left foot Cellulitis left foot Diabetes type 1 Peripheral neuropathy Operation Performed Incision and drainage of left foot abscess with cellulitis Surgeon: JOEY TRIANA DPM Anesthesia: general Estimated Blood Loss: minimal Specimens Necrotic soft tissue Complications: None Pt Condition Post Procedure: stable Disposition: PACU Indications This is a pleasant 31-year-old male patient who has been suffering with type 1 diabetes mellitus and left foot abscess with cellulitis for the past 2-3 weeks. Patient was evaluated and was found to have abscess with cellulitis of the left foot. Patient has failed the following treatments: IV antibiotics. Patient seeks surgical management. Recommended procedure: Incision and drainage with debridement of left foot abscess with cellulitis. Risks and complications of this type of surgery was discussed with patient in great detail. Risks and complications discussed included, but are not limited to, postoperative infection, postoperative pain, hardware failure, failure of surgery to correct the problem, need for additional surgical procedures, deep venous thrombosis, limb loss and loss of life. Patient understands the discussion and agrees to the procedure. An informed consent was signed, obtained and placed in the chart. No guarantees or warrantees was given or implied as to the outcome of the procedure either in verbal or written form. Operative Findings Abscess with cellulitis of the left foot with multiple wounds. Procedure Description The patient was seen in the preop area and the proposed procedure was discussed in great detail. All questions were answered. Risks and complications were discussed. Informed consent was obtained, signed and placed in the chart. The patient was then taken to the operating room and was placed on the operating table in the supine position. All bony prominences were padded properly. A timeout was called in the location of surgery was identified along with the procedure and other requirements. Everyone agreed with timeout. The patient was then placed under general anesthesia by the anesthesiologist. The left foot and ankle was scrubbed, prepped and draped in the usual aseptic manner. Attention was directed to the left foot. There were 3 open wounds were found to on top and one on the lateral side. Lateral wound contained significant amount of necrotic soft tissue. Sharp debridement of all 3 wounds was done to bleeding subcutaneous tissue for the dorsal wounds and muscle layer to the lateral wound. This was done using sharp instrumentation and curettes. Next, PB irrigation was used for irrigating all the wounds. Following that, iodoform packing was used to pack the wound and sterile dressing was applied. The patient tolerated procedure and anesthesia well. He was transferred to recovery room with vital signs stable and vascular status intact to the left foot. Patient will be sent back to the floor after postoperative monitoring. Postoperative orders were written. Partial weightbearing allowed with postop shoe. Patient will be followed in-house. Prognosis is improved but patient remains at risk for infection and limb loss. JOEY TRIANA DPM Nov 21, 2016 20:56
[2016-11-21] MEDS: morphine (1 MG/ML) 10ML SYRINGE IV PRN ×2 (21:16→21:31)
[2016-11-21] MEDS: QUETIAPINE 25 MG TAB PO SCH (22:24)
[2016-11-21] MEDS: GABAPENTIN 100 MG CAP PO SCH (22:24)
[2016-11-21] MEDS: INSULIN GLARGINE [LANtus] 3 ML PEN SC SCH (23:31)
[2016-11-22] MEDS: oxyCODONE (CR) 10 MG TAB [oxyCONTIN] PO SCH ×2 (01:26→08:19)
[2016-11-22] MEDS: ACCUCHECK XX SCH (02:00)
[2016-11-22] MEDS: AZTREONAM 1 GM/NS (PMX) 50 ML IVPB SCH ×3 (05:13→21:21)
[2016-11-22] MEDS: HYDROmorphONE 2 MG TAB PO PRN ×2 (05:13→11:47)
[2016-11-22] MEDS: metroNIDAZOLE 500 MG/NS (PMX) 250 MG in EVAC CONTAINER 1 BOTTLE IVPB SCH ×3 (06:25→23:05)
[2016-11-22] MEDS: HYDROCODONE/APAP (10/325) TAB NGT PRN ×3 (06:58→15:04)
[2016-11-22 07:37] VITALS: BP 101/56; RESP 16
[2016-11-22] MEDS: INSULIN ASPART [NOVOLOG] 3 ML PEN SC SCH ×7 (08:05→22:47)
[2016-11-22] MEDS: SILVER SULFADIAZINE 1% 25 GM CR TOP SCH ×2 (08:07→21:00)
[2016-11-22] MEDS: LORAZEPAM 1 MG TAB PO PRN ×2 (08:18→21:42)
[2016-11-22] MEDS: VENLAFAXINE (XR) 75 MG CAP PO SCH (08:18)
[2016-11-22] MEDS: NYSTATIN 15 GM CR TOP SCH ×2 (08:19→21:00)
[2016-11-22] MEDS: VITAMIN B COMPLEX/VIT C CAP PO SCH (08:19)
--- NOTE | 2016-11-22 12:25 | PN ---
Date/Time of Note Date/Time of Note DATE: 11/22/16 TIME: 12:24 Assessment/Plan VTE Prophylaxis VTE Prophylaxis Intervention: other Lines/Catheters IV Catheter Type (from Nrsg): PICC Line Central line still needed: Yes Assessment/Plan Chief Complaint/Hosp Course FOOT WOUND s/p Incision and drainage of left foot abscess DM cellulites PLAN PER ID AND PODIATRY ANTIBIOTIC Problems: Subjective 24 Hr Interval Summary Cardiovascular: no complaints Gastrointestinal: no complaints Musculoskeletal: bone/joint pain (+) Exam/Review of Systems Vital Signs Vitals Vital Signs Date Time Temp Pulse Resp B/P Pulse Ox O2 Delivery O2 Flow Rate FiO2 11/22/16 07:37 97.9 67 16 101/56 95 11/21/16 21:28 Room Air Intake and Output 11/21/16 11/21/16 11/22/16 15:00 23:00 07:00 Intake Total 1630 ml 920 ml Output Total 1310 ml 700 ml Balance 320 ml 220 ml Exam Respiratory: clear to auscultation Cardiovascular: regular rate and rhythm Gastrointestinal: soft Extremities: No edema Results Result Diagram: 11/21/16 0550 Results 24 hrs Laboratory Tests Test 11/21/16 17:32 11/21/16 21:24 11/22/16 01:29 11/22/16 07:57 Bedside Glucose 150 160 278 H 120 Test 11/22/16 11:48 Bedside Glucose 122 Medications Medications Current Medications Docusate Sodium (Colace) 100 mg BID PRN PO PRN; Start 11/15/16 at 01:00 Gabapentin (Neurontin) 100 mg QHS PO Last administered on 11/21/16 22:24; Admin Dose 100 MG; Start 11/15/16 at 21:00 Ibuprofen (Motrin) 600 mg TID PRN PO PRN; Start 11/15/16 at 01:00 Lorazepam (Ativan) 2 mg TID PRN PO ANXIETY Last administered on 11/22/16 08:18 ; Admin Dose 2 MG; Start 11/15/16 at 01:00 Nystatin (Nystatin Cr) 1 applic BID TOP Last administered on 11/22/16 08:19; Admin Dose 1 APPLIC; Start 11/15/16 at 09:00 Oxycodone HCl (Oxycontin) 10 mg Q8H PO Last administered on 11/22/16 08:19; Admin Dose 10 MG; Start 11/15/16 at 01:00 Senna (Senokot) 1 tab QHS PRN PO PRN; Start 11/15/16 at 01:00 Venlafaxine HCl (Effexor Xr) 75 mg DAILY PO Last administered on 11/22/16 08: 18; Admin Dose 75 MG; Start 11/15/16 at 09:00 Quetiapine Fumarate (Seroquel) 50 mg HS PO Last administered on 11/21/16 22:24 ; Admin Dose 50 MG; Start 11/15/16 at 21:00 Vitamin B Complex/ Vitamin C ([place]) 1 cap DAILY PO Last administered on 11/22 08:19; Admin Dose 1 CAP; Start 11/15/16 at 09:00 Diagnostic Test (Pha) 1 ea 1 ea 02 XX Last administered on 11/20/16 02:08; Admin Dose 1 EA; Start 11/15/16 at 02:00 Daptomycin 525 mg/ Sodium Chloride 100 ml @ 200 mls/hr Q24H IVPB Last administered on 11/21/16 17:29; Admin Dose 200 MLS/HR; Start 11/15/16 at 16:00 Metronidazole 250 mg/N/A 50 ml @ 50 mls/hr Q8 IVPB Last administered on 06:25; Admin Dose 50 MLS/HR; Start 11/15/16 at 15:30 Aztreonam (Azactam 1gm/NS (Pmx)) 50 ml @ 100 mls/hr Q8 IVPB Last administered on 11/22/16 05:13; Admin Dose 100 MLS/HR; Start 11/15/16 at 15:30 Silver Sulfadiazine (Thermazene 1% 25 Gm) 1 applic BID TOP Last administered on 11/21/16 08:39; Admin Dose 1 APPLIC; Start 11/15/16 at 21:00 Acetaminophen/ Hydrocodone Bitart ([place] (10/325)) 1 tab Q4H PRN NGT pain Last administered on 11/22/16 11:01; Admin Dose 1 TAB; Start 11/16/16 at 10:30 Miscellaneous Information 1 ea NOTE XX ; Start 11/17/16 at 03:00 Glucose (Glutose) 15 gm Q15M PRN PO DECREASED GLUCOSE; Start 11/17/16 at 03:00 Glucose (Glutose) 22.5 gm Q15M PRN PO DECREASED GLUCOSE; Start 11/17/16 at 03: 00 Dextrose (D50w Syringe) 25 ml Q15M PRN IV DECREASED GLUCOSE; Start 11/17/16 at 03:00 Dextrose (D50w Syringe) 50 ml Q15M PRN IV DECREASED GLUCOSE; Start 11/17/16 at 03:00 Glucagon (Glucagen) 1 mg Q15M PRN IM DECREASED GLUCOSE; Start 11/17/16 at 03:00 Glucose (Glutose) 15 gm Q15M PRN BUCCAL DECREASED GLUCOSE; Start 11/17/16 at 03 :00 Fentanyl (Duragesic 25 Mcg/Hr Patch) 1 patch Q72H TRANSDERM Last administered on 11/20/16 23:24; Admin Dose 1 PATCH; Start 11/17/16 at 21:00 Hydromorphone HCl (Dilaudid) 6 mg Q6H PRN PO pain Last administered on 11:47; Admin Dose 6 MG; Start 11/19/16 at 16:00 Insulin Glargine (Lantus) 25 unit HS SC Last administered on 11/21/16 23:31; Admin Dose 25 UNIT; Start 11/21/16 at 21:00 TEODORA GARCIA MD Nov 22, 2016 12:25
--- NOTE | 2016-11-22 14:40 | CONS ---
Date/Time of Note Date/Time of Note DATE: 11/22/16 TIME: 14:39 Assessment/Plan Assessment/Plan Chief Complaint/Hosp Course SUBJECTIVE: Patient is alert, feels ok, no fevers, nad MICROBIOLOGY: Wound culture negative. Blood cultures have been negative. DIAGNOSTICS: MRI of the foot revealed possible early osteomyelitis and questionable 10 cm abscess in the mid foot. ANTIMICROBIALS: 1. Daptomycin. 2. Azactam. 3. Flagyl. PHYSICAL EXAMINATION: GENERAL: Well-nourished, well-developed, middle-aged white man who is alert, in no distress. HEENT: Head atraumatic, normocephalic. Sclerae anicteric. Buccal mucosa pink. NECK: Supple, trachea midline. CHEST: Rise symmetrical. Breath sounds clear. HEART: S1, S2. ABDOMEN: Soft, bowel tones present. EXTREMITIES: Left foot with decreased swelling and erythema. ASSESSMENT: 1. Left foot cellulitis, possible early osteomyelitis and abscess. 2. Diabetes with diabetic neuropathy. 3. Positive for tobacco use. PLAN: The patient remains stable. S/p R foot i&d yesterday, continue abx, local wound care per podiatry. DW pt Problems: Consultation Date/Type/Reason Admit Date/Time Nov 14, 2016 at 22:08 Type of Consultation: ID Referring Provider: TEODORA GARCIA MD Exam/Review of Systems Vital Signs Vitals Vital Signs Date Time Temp Pulse Resp B/P Pulse Ox O2 Delivery O2 Flow Rate FiO2 11/22/16 07:37 97.9 67 16 101/56 95 11/21/16 21:28 Room Air Intake and Output 11/21/16 11/21/16 11/22/16 14:59 22:59 06:59 Intake Total 1630 ml 920 ml Output Total 1310 ml 700 ml Balance 320 ml 220 ml Results Result Diagram: 11/21/16 0550 Results 24 hrs Laboratory Tests Test 11/21/16 17:32 11/21/16 21:24 11/22/16 01:29 11/22/16 07:57 Bedside Glucose 150 160 278 H 120 Test 11/22/16 11:48 Bedside Glucose 122 Medications Medications Current Medications Docusate Sodium (Colace) 100 mg BID PRN PO PRN; Start 11/15/16 at 01:00 Gabapentin (Neurontin) 100 mg QHS PO Last administered on 11/21/16 22:24; Admin Dose 100 MG; Start 11/15/16 at 21:00 Ibuprofen (Motrin) 600 mg TID PRN PO PRN; Start 11/15/16 at 01:00 Lorazepam (Ativan) 2 mg TID PRN PO ANXIETY Last administered on 11/22/16 08:18 ; Admin Dose 2 MG; Start 11/15/16 at 01:00 Nystatin (Nystatin Cr) 1 applic BID TOP Last administered on 11/22/16 08:19; Admin Dose 1 APPLIC; Start 11/15/16 at 09:00 Oxycodone HCl (Oxycontin) 10 mg Q8H PO Last administered on 11/22/16 08:19; Admin Dose 10 MG; Start 11/15/16 at 01:00 Senna (Senokot) 1 tab QHS PRN PO PRN; Start 11/15/16 at 01:00 Venlafaxine HCl (Effexor Xr) 75 mg DAILY PO Last administered on 11/22/16 08: 18; Admin Dose 75 MG; Start 11/15/16 at 09:00 Quetiapine Fumarate (Seroquel) 50 mg HS PO Last administered on 11/21/16 22:24 ; Admin Dose 50 MG; Start 11/15/16 at 21:00 Vitamin B Complex/ Vitamin C (Berocca) 1 cap DAILY PO Last administered on 11/22 08:19; Admin Dose 1 CAP; Start 11/15/16 at 09:00 Diagnostic Test (Pha) 1 ea 1 ea 02 XX Last administered on 11/20/16 02:08; Admin Dose 1 EA; Start 11/15/16 at 02:00 Daptomycin 525 mg/ Sodium Chloride 100 ml @ 200 mls/hr Q24H IVPB Last administered on 11/21/16 17:29; Admin Dose 200 MLS/HR; Start 11/15/16 at 16:00 Metronidazole 250 mg/N/A 50 ml @ 50 mls/hr Q8 IVPB Last administered on 13:51; Admin Dose 50 MLS/HR; Start 11/15/16 at 15:30 Aztreonam (Azactam 1gm/NS (Pmx)) 50 ml @ 100 mls/hr Q8 IVPB Last administered on 11/22/16 05:13; Admin Dose 100 MLS/HR; Start 11/15/16 at 15:30 Silver Sulfadiazine (Thermazene 1% 25 Gm) 1 applic BID TOP Last administered on 11/21/16 08:39; Admin Dose 1 APPLIC; Start 11/15/16 at 21:00 Acetaminophen/ Hydrocodone Bitart ([place] (10)) 1 tab Q4H PRN NGT pain Last administered on 11/22/16 11:01; Admin Dose 1 TAB; Start 11/16/16 at 10:30 Miscellaneous Information 1 ea NOTE XX ; Start 11/17/16 at 03:00 Glucose (Glutose) 15 gm Q15M PRN PO DECREASED GLUCOSE; Start 11/17/16 at 03:00 Glucose (Glutose) 22.5 gm Q15M PRN PO DECREASED GLUCOSE; Start 11/17/16 at 03: 00 Dextrose (D50w Syringe) 25 ml Q15M PRN IV DECREASED GLUCOSE; Start 11/17/16 at 03:00 Dextrose (D50w Syringe) 50 ml Q15M PRN IV DECREASED GLUCOSE; Start 11/17/16 at 03:00 Glucagon (Glucagen) 1 mg Q15M PRN IM DECREASED GLUCOSE; Start 11/17/16 at 03:00 Glucose (Glutose) 15 gm Q15M PRN BUCCAL DECREASED GLUCOSE; Start 11/17/16 at 03 :00 Fentanyl (Duragesic 25 Mcg/Hr Patch) 1 patch Q72H TRANSDERM Last administered on 11/20/16 23:24; Admin Dose 1 PATCH; Start 11/17/16 at 21:00 Hydromorphone HCl (Dilaudid) 6 mg Q6H PRN PO pain Last administered on 11:47; Admin Dose 6 MG; Start 11/19/16 at 16:00 Insulin Glargine (Lantus) 25 unit HS SC Last administered on 11/21/16 23:31; Admin Dose 25 UNIT; Start 11/21/16 at 21:00 IRASEMA MORA NP Nov 22, 2016 14:40
[2016-11-22] MEDS: DAPTOMYCIN IVPB SCH (16:04)
[2016-11-22] MEDS: SOD CHLORIDE 0.9% IVPB SCH (16:04)
[2016-11-22 17:38] LABS: POTASSIUM 4.5 mmol/L (3.5-5.1)
[2016-11-22 17:41] LABS: CALCIUM 8.8 mg/dl (8.4-10.2); CREATININE 0.78 mg/dl (0.61-1.24)
--- NOTE | 2016-11-22 17:57 | CONS ---
DATE OF ADMISSION: 11/14/2016 DATE OF CONSULTATION: 11/22/2016 HISTORY OF PRESENT ILLNESS: This is a 31-year-old male who has a history of type 1 diabetes, who wa s admitted to [facility] probably approximately 1 month ago, was found to have a cellulitis of his left lower extremity. He was hospitalized for 3 weeks, discharged with home health care and quickly developed within 2 days a red, swollen left lower extremity in the area where he initially had cellulitis. He was admitted here to [facility] coming here for wound care cli mary and what he thought was a higher level of care that he would receive here. He has been seen by infectious disease, Dr. Alba, Dr. Mendes, Dr. Harris, Roby Taylor, and has been receiving ag gressive intervention, status post debridement on 11/21/2016 and broad spectrum IV antibiotic covera . He still has severe pain in his left lower extremity, describes it as a constant falling kind o f discomfort with radicular lancinating pain with minimal movement. He denies a history of peripher al neuropathy. He says he takes gabapentin for occasional bilateral coldness in both lower extremit ies, but he thinks that medication really has not helped his degree of discomfort. MEDICATIONS: Currently his medications include: 1. Fentanyl patch 25 mcg q.72h. 2. Dilaudid 6 mg q.6h. 3. [place] 1 mg q.4h. 4. Benzodiazepines, Ativan 2 mg 3 times a day as needed, OxyContin 10 mg q.8h. He had morphine di scontinued yesterday, 11/21/2016, still complains of discomfort at this time. MEDICATIONS: Please refer to reconciliation sheet. ALLERGIES: NO DRUG ALLERGIES, according to the patient. MAJOR MEDICAL PROBLEMS IN THE PAST: States that he feels fairly well controlled with his diabetes. He does not have any complications related to type 1 diabetes, states that his hemoglobin A1c level s run in the 7s. SOCIAL HISTORY: He smokes 6 cigarettes per day. Occasionally smokes marijuana. No other recreatio nal drug use. FAMILY HISTORY: Noncontributory. REVIEW OF SYSTEMS: A 12-point review of systems otherwise unremarkable except as per history of pre sent illness. PHYSICAL EXAMINATION: VITAL SIGNS: Blood pressure 101/56, pulse is 67 and regular, respirations of 16, temperature of 97. 9 degrees, 97% saturation on room air. HEENT: He is normocephalic and atraumatic. Anicteric, acyanotic. CHEST: Shows bilateral clear breath sounds throughout both lung fontana. COR: S1, S2, without S3, S4, murmur, gallop, rub. Normal rate, normal rhythm. ABDOMEN: Grossly benign. NEUROLOGIC: He is oriented x3. Cranial nerves II through XII grossly intact. Motor and sensory fi ndings grossly within normal limits. LABORATORY TESTS: Last chemistries on 11/17/2016: Serum sodium 138, potassium 4.5, chloride 100, b icarbonate 13, BUN of 20, creatinine 0.73. Last CBC: White blood cell count of 3.3, hemoglobin lev el of 12.6, hematocrit 37.0, MCV of 86.4, platelet count of 265,000. ASSESSMENT AND PLAN: This gentleman has type 1 diabetes, has left lower extremity cellulitis and st atus post open debridement. Pain is not controlled on current regimen. I have discussed with him t he use of a MELTING FURNACE SKIMMER pump. I will switch him over to 1 mg MELTING FURNACE SKIMMER an hour without a continuous. I think wit h the combination of opioids he was using up until now, he is extremely tolerant and 1 mg might suff ice in keeping his pain under good control, but he may need to have higher dosage. I will follow wayne m closely. I have decided at this time not put him on continuous, but that is still an option if hi s pain is not better controlled. Suggest continuing with Gabapentin. I will order a BNP, as patien t is diabetic and I want to check his renal function as all opioids with the exception of methadone and fentanyl are metabolized through the kidneys. Dictated By: MATTHEW MAYERS MD, LP/AKI Conf#: [id number] DID#: [id number]
[2016-11-22] MEDS: HYDROmorphONE 0.2 MG/ML PCA IV SCH ×2 (18:26→23:14)
[2016-11-22 19:58] VITALS: BP 118/74; RESP 16
[2016-11-22] MEDS: GABAPENTIN 100 MG CAP PO SCH (21:21)
[2016-11-22] MEDS: QUETIAPINE 25 MG TAB PO SCH (21:23)
[2016-11-22] MEDS: INSULIN GLARGINE [LANtus] 3 ML PEN SC SCH (21:40)
--- NOTE | 2016-11-22 23:50 | PN ---
Date/Time of Note Date/Time of Note DATE: 11/22/16 TIME: 23:50 Assessment/Plan Lines/Catheters IV [facility]from [facility] PICC Line Assessment/Plan Chief Complaint/Hosp Course Thank you very much for involving me in the care of this patient. 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 He says that about 6 weeks ago he started to develop red spots on his left foot and he does not recall the mechanism. He denies any trauma to his feet. He says that he continued to develop redness swelling and started to have increasing pain. He reports seeing pus and eventually went to [facility] emergency. He was admitted to the hospital and was placed on IV antibiotics. Patient was seen by a program production specialist who after we stated that he does not have any need for surgery but did a bedside "incision and drainage". Patient says he was released home on oral antibiotics. He says that his condition got worse and he subsequently ended up coming to [facility]. He was admitted for infection and worsening of his condition the left foot. I was consulted for evaluation and treatment. Today, patient reports pain on the dorsal aspect of his foot. Patient denies recent fever and chills. Denies recent trauma. Patient has been on IV antibiotics since his admission. Problems: Exam/Review of Systems Vital Signs Vitals Vital Signs Date Time Temp Pulse Resp B/P Pulse Ox O2 Delivery O2 Flow Rate FiO2 11/22/16 19:58 98.6 72 16 118/74 96 11/21/16 21:28 Room Air Intake and Output 11/21/16 11/21/16 11/22/16 15:00 23:00 07:00 Intake Total 1630 ml 920 ml Output Total 1310 ml 700 ml Balance 320 ml 220 ml Results Result Diagram: 11/22/16 1700 JOEY TRIANA DPM Nov 22, 2016 23:50
[2016-11-23] MEDS: ACCUCHECK XX SCH (02:00)
[2016-11-23] MEDS: HYDROmorphONE 0.2 MG/ML PCA IV SCH ×3 (05:36→18:22)
[2016-11-23] MEDS: AZTREONAM 1 GM/NS (PMX) 50 ML IVPB SCH ×3 (05:38→21:18)
[2016-11-23 06:02] LABS: POTASSIUM 4.1 mmol/L (3.5-5.1)
[2016-11-23 06:04] LABS: CREATININE 0.71 mg/dl (0.61-1.24)
[2016-11-23 06:05] LABS: CALCIUM 8.7 mg/dl (8.4-10.2)
[2016-11-23 06:52] LABS: BASOPHILS % 0.8 % (0.0-2.0); EOSINOPHILS # 0.2 10^3/ul (0.0-0.5); EOSINOPHILS % 4.3 % (0.0-7.0); HEMATOCRIT 36.3 % (42.0-52.0); HEMOGLOBIN 12.4 g/dl (14.0-18.0); LYMPHOCYTES # 1.9 10^3/ul (0.8-2.9); LYMPHOCYTES % 35.6 % (15.0-51.0); MEAN CORPUSCULAR HEMOGLOBIN 29.6 pg (29.0-33.0); MEAN CORPUSCULAR HGB CONC 34.2 g/dl (32.0-37.0); MEAN CORPUSCULAR VOLUME 86.3 fl (82.0-101.0); MEAN PLATELET VOLUME 7.8 fl (7.4-10.4); MONOCYTE # 0.5 10^3/ul (0.3-0.9); MONOCYTES % 9.3 % (0.0-11.0); NEUTROPHIL # 2.7 10^3/ul (1.6-7.5); PLATELET COUNT 364 10^3/UL (140-440); RED BLOOD COUNT 4.21 10^6/ul (4.70-6.10); RED CELL DISTRIBUTION WIDTH 15.2 % (11.5-14.5); UNCORRECTED WBC 5.3 10^3/ul (4.8-10.8); WHITE BLOOD COUNT 5.3 10^3/ul (4.8-10.8)
[2016-11-23] MEDS: metroNIDAZOLE 500 MG/NS (PMX) 250 MG in EVAC CONTAINER 1 BOTTLE IVPB SCH ×3 (06:57→22:24)
[2016-11-23 07:15] LABS: CONDITION 1; LH ANALYZER COMMENTS 1
[2016-11-23 07:43] VITALS: BP 99/56; RESP 14
[2016-11-23] MEDS: INSULIN ASPART [NOVOLOG] 3 ML PEN SC SCH ×7 (07:49→21:32)
[2016-11-23] MEDS: VITAMIN B COMPLEX/VIT C CAP PO SCH (07:55)
[2016-11-23] MEDS: VENLAFAXINE (XR) 75 MG CAP PO SCH (07:55)
[2016-11-23] MEDS: LORAZEPAM 1 MG TAB PO PRN ×2 (07:55→21:18)
[2016-11-23] MEDS: SILVER SULFADIAZINE 1% 25 GM CR TOP SCH ×2 (09:00→21:00)
[2016-11-23] MEDS: NYSTATIN 15 GM CR TOP SCH ×2 (09:00→21:00)
[2016-11-23] MEDS: DAPTOMYCIN IVPB SCH (16:35)
[2016-11-23] MEDS: SOD CHLORIDE 0.9% IVPB SCH (16:35)
--- NOTE | 2016-11-23 16:44 | PN ---
Date/Time of Note Date/Time of Note DATE: 11/23/16 TIME: 16:43 Assessment/Plan VTE Prophylaxis VTE Prophylaxis Intervention: other Lines/Catheters IV Catheter Type (from Nrs): PICC Line Central line still needed: Yes Assessment/Plan Chief Complaint/Hosp Course FOOT WOUND s/p Incision and drainage of left foot abscess DM cellulites PLAN PER ID AND PODIATRY ANTIBIOTIC Problems: Subjective 24 Hr Interval Summary Gastrointestinal: no complaints Genitourinary: no complaints Musculoskeletal: other (foot pain+) Exam/Review of Systems Vital Signs Vitals Vital Signs Date Time Temp Pulse Resp B/P Pulse Ox O2 Delivery O2 Flow Rate FiO2 11/23/16 12:30 18 11/23/16 07:43 98.2 63 99/56 92 11/21/16 21:28 Room Air Intake and Output 11/22/16 11/22/16 11/23/16 15:00 23:00 07:00 Intake Total 2570 ml 2100 ml Output Total 1900 ml 1500 ml Balance 670 ml 600 ml Exam Neck: supple Respiratory: clear to auscultation Cardiovascular: regular rate and rhythm Gastrointestinal: soft Musculoskeletal: nl extremities to inspection Extremities: normal pulses Results Result Diagram: 11/23/16 0500 11/23/16 0500 Results 24 hrs Laboratory Tests Test 11/22/16 17:00 11/22/16 17:50 11/22/16 21:36 11/23/16 02:49 Anion Gap 14 Blood Urea Nitrogen 20 Calcium Level 8.8 Carbon Dioxide Level 32 H Chloride Level 99 Creatinine 0.78 Glucose Level 134 Potassium Level 4.5 Sodium Level 140 Bedside Glucose 165 240 H 288 H Test 11/23/16 05:00 11/23/16 07:47 11/23/16 12:10 Anion Gap 14 Basophils # 0.0 Basophils % 0.8 Blood Morphology Comment Blood Urea Nitrogen 20 Calcium Level 8.7 Carbon Dioxide Level 31 Chloride Level 101 Creatinine 0.71 Eosinophils # 0.2 Eosinophils % 4.3 Glucose Level 140 Hematocrit 36.3 L Hemoglobin 12.4 L Lymphocytes # 1.9 Lymphocytes % 35.6 Mean Corpuscular Hemoglobin 29.6 Mean Corpuscular Hemoglobin Concent 34.2 Mean Corpuscular Volume 86.3 Mean Platelet Volume 7.8 Monocytes # 0.5 Monocytes % 9.3 Neutrophils # 2.7 Neutrophils % 50.0 Nucleated Red Blood Cells # 0.0 Nucleated Red Blood Cells % 0.0 Platelet Count 364 # Potassium Level 4.1 Red Blood Count 4.21 L Red Cell Distribution Width 15.2 H Sodium Level 142 White Blood Count 5.3 # Bedside Glucose 142 296 H Medications Medications Current Medications Docusate Sodium (Colace) 100 mg BID PRN PO PRN; Start 11/15/16 at 01:00 Gabapentin (Neurontin) 100 mg QHS PO Last administered on 11/22/16 21:21; Admin Dose 100 MG; Start 11/15/16 at 21:00 Ibuprofen (Motrin) 600 mg TID PRN PO PRN; Start 11/15/16 at 01:00 Lorazepam (Ativan) 2 mg TID PRN PO ANXIETY Last administered on 11/23/16 07:55 ; Admin Dose 2 MG; Start 11/15/16 at 01:00 Nystatin (Nystatin Cr) 1 applic BID TOP Last administered on 11/22/16 08:19; Admin Dose 1 APPLIC; Start 11/15/16 at 09:00 Senna (Senokot) 1 tab QHS PRN PO PRN; Start 11/15/16 at 01:00 Venlafaxine HCl (Effexor Xr) 75 mg DAILY PO Last administered on 11/23/16 07: 55; Admin Dose 75 MG; Start 11/15/16 at 09:00 Quetiapine Fumarate (Seroquel) 50 mg HS PO Last administered on 11/22/16 21:23 ; Admin Dose 50 MG; Start 11/15/16 at 21:00 Vitamin B Complex/ Vitamin C (Berocca) 1 cap DAILY PO Last administered on 11/23 07:55; Admin Dose 1 CAP; Start 11/15/16 at 09:00 Diagnostic Test (Pha) 1 ea 1 ea 02 XX Last administered on 11/20/16 02:08; Admin Dose 1 EA; Start 11/15/16 at 02:00 Daptomycin 525 mg/ Sodium Chloride 100 ml @ 200 mls/hr Q24H IVPB Last administered on 11/23/16 16:35; Admin Dose 200 MLS/HR; Start 11/15/16 at 16:00 Metronidazole 250 mg/N/A 50 ml @ 50 mls/hr Q8 IVPB Last administered on 14:59; Admin Dose 50 MLS/HR; Start 11/15/16 at 15:30 Aztreonam (Azactam 1gm/NS (Pmx)) 50 ml @ 100 mls/hr Q8 IVPB Last administered on 11/23/16 14:23; Admin Dose 100 MLS/HR; Start 11/15/16 at 15:30 Silver Sulfadiazine (Thermazene 1% 25 Gm) 1 applic BID TOP Last administered on 11/21/16 08:39; Admin Dose 1 APPLIC; Start 11/15/16 at 21:00 Miscellaneous Information 1 ea NOTE XX ; Start 11/17/16 at 03:00 Glucose (Glutose) 15 gm Q15M PRN PO DECREASED GLUCOSE; Start 11/17/16 at 03:00 Glucose (Glutose) 22.5 gm Q15M PRN PO DECREASED GLUCOSE; Start 11/17/16 at 03: 00 Dextrose (D50w Syringe) 25 ml Q15M PRN IV DECREASED GLUCOSE; Start 11/17/16 at 03:00 Dextrose (D50w Syringe) 50 ml Q15M PRN IV DECREASED GLUCOSE; Start 11/17/16 at 03:00 Glucagon (Glucagen) 1 mg Q15M PRN IM DECREASED GLUCOSE; Start 11/17/16 at 03:00 Glucose (Glutose) 15 gm Q15M PRN BUCCAL DECREASED GLUCOSE; Start 11/17/16 at 03 :00 Insulin Glargine (Lantus) 25 unit HS SC Last administered on 11/22/16 21:40; Admin Dose 25 UNIT; Start 11/21/16 at 21:00 Hydromorphone HCl (Dilaudid RETAIL PRESENTATION SPECIALIST) 0 MG/HR CONTINUOUS R... Q4PCA IV Last administered on 11/23/16 12:42; Admin Dose 6 MG; Start 11/22/16 at 16:00 TEODORA GARCIA MD Nov 23, 2016 16:44
--- NOTE | 2016-11-23 18:21 | CONS ---
Date/Time of Note Date/Time of Note DATE: 11/23/16 TIME: 18:21 Assessment/Plan Assessment/Plan Chief Complaint/Hosp Course SUBJECTIVE: Patient is alert, feels ok, no fevers, nad MICROBIOLOGY: Wound culture negative. Blood cultures have been negative. DIAGNOSTICS: MRI of the foot revealed possible early osteomyelitis and questionable 10 cm abscess in the mid foot. ANTIMICROBIALS: 1. Daptomycin. 2. Azactam. 3. Flagyl. PHYSICAL EXAMINATION: GENERAL: Well-nourished, well-developed, middle-aged white man who is alert, in no distress. HEENT: Head atraumatic, normocephalic. Sclerae anicteric. Buccal mucosa pink. NECK: Supple, trachea midline. CHEST: Rise symmetrical. Breath sounds clear. HEART: S1, S2. ABDOMEN: Soft, bowel tones present. EXTREMITIES: Left foot with decreased swelling and erythema. ASSESSMENT: 1. Left foot cellulitis, possible early osteomyelitis and abscess. 2. Diabetes with diabetic neuropathy. 3. Positive for tobacco use. PLAN: The patient remains stable, continue abx, local wound care per podiatry, will dw Dr Man the length of abx. DW staff Problems: Consultation Date/Type/Reason Admit Date/Time Nov 14, 2016 at 22:08 Type of Consultation: ID Referring Provider: TEODORA GARCIA MD Exam/Review of Systems Vital Signs Vitals Vital Signs Date Time Temp Pulse Resp B/P Pulse Ox O2 Delivery O2 Flow Rate FiO2 11/23/16 12:30 18 11/23/16 07:43 98.2 63 99/56 92 11/21/16 21:28 Room Air Intake and Output 11/22/16 11/22/16 11/23/16 15:00 23:00 07:00 Intake Total 2570 ml 2100 ml Output Total 1900 ml 1500 ml Balance 670 ml 600 ml Results Result Diagram: 11/23/16 0500 11/23/16 0500 Results 24 hrs Laboratory Tests Test 11/22/16 21:36 11/23/16 02:49 11/23/16 05:00 11/23/16 07:47 Bedside Glucose 240 H 288 H 142 Anion Gap 14 Basophils # 0.0 Basophils % 0.8 Blood Morphology Comment Blood Urea Nitrogen 20 Calcium Level 8.7 Carbon Dioxide Level 31 Chloride Level 101 Creatinine 0.71 Eosinophils # 0.2 Eosinophils % 4.3 Glucose Level 140 Hematocrit 36.3 L Hemoglobin 12.4 L Lymphocytes # 1.9 Lymphocytes % 35.6 Mean Corpuscular Hemoglobin 29.6 Mean Corpuscular Hemoglobin Concent 34.2 Mean Corpuscular Volume 86.3 Mean Platelet Volume 7.8 Monocytes # 0.5 Monocytes % 9.3 Neutrophils # 2.7 Neutrophils % 50.0 Nucleated Red Blood Cells # 0.0 Nucleated Red Blood Cells % 0.0 Platelet Count 364 # Potassium Level 4.1 Red Blood Count 4.21 L Red Cell Distribution Width 15.2 H Sodium Level 142 White Blood Count 5.3 # Test 11/23/16 12:10 11/23/16 17:36 Bedside Glucose 296 H 79 Medications Medications Current Medications Docusate Sodium (Colace) 100 mg BID PRN PO PRN; Start 11/15/16 at 01:00 Gabapentin (Neurontin) 100 mg QHS PO Last administered on 11/22/16 21:21; Admin Dose 100 MG; Start 11/15/16 at 21:00 Ibuprofen (Motrin) 600 mg TID PRN PO PRN; Start 11/15/16 at 01:00 Lorazepam (Ativan) 2 mg TID PRN PO ANXIETY Last administered on 11/23/16 07:55 ; Admin Dose 2 MG; Start 11/15/16 at 01:00 Nystatin (Nystatin Cr) 1 applic BID TOP Last administered on 11/22/16 08:19; Admin Dose 1 APPLIC; Start 11/15/16 at 09:00 Senna (Senokot) 1 tab QHS PRN PO PRN; Start 11/15/16 at 01:00 Venlafaxine HCl (Effexor Xr) 75 mg DAILY PO Last administered on 11/23/16 07: 55; Admin Dose 75 MG; Start 11/15/16 at 09:00 Quetiapine Fumarate (Seroquel) 50 mg HS PO Last administered on 11/22/16 21:23 ; Admin Dose 50 MG; Start 11/15/16 at 21:00 Vitamin B Complex/ Vitamin C (Berocca) 1 cap DAILY PO Last administered on 11/23 07:55; Admin Dose 1 CAP; Start 11/15/16 at 09:00 Diagnostic Test (Pha) 1 ea 1 ea 02 XX Last administered on 11/20/16 02:08; Admin Dose 1 EA; Start 11/15/16 at 02:00 Daptomycin 525 mg/ Sodium Chloride 100 ml @ 200 mls/hr Q24H IVPB Last administered on 11/23/16 16:35; Admin Dose 200 MLS/HR; Start 11/15/16 at 16:00 Metronidazole 250 mg/N/A 50 ml @ 50 mls/hr Q8 IVPB Last administered on 14:59; Admin Dose 50 MLS/HR; Start 11/15/16 at 15:30 Aztreonam (Azactam 1gm/NS (Pmx)) 50 ml @ 100 mls/hr Q8 IVPB Last administered on 11/23/16 14:23; Admin Dose 100 MLS/HR; Start 11/15/16 at 15:30 Silver Sulfadiazine (Thermazene 1% 25 Gm) 1 applic BID TOP Last administered on 11/21/16 08:39; Admin Dose 1 APPLIC; Start 11/15/16 at 21:00 Miscellaneous Information 1 ea NOTE XX ; Start 11/17/16 at 03:00 Glucose (Glutose) 15 gm Q15M PRN PO DECREASED GLUCOSE; Start 11/17/16 at 03:00 Glucose (Glutose) 22.5 gm Q15M PRN PO DECREASED GLUCOSE; Start 11/17/16 at 03: 00 Dextrose (D50w Syringe) 25 ml Q15M PRN IV DECREASED GLUCOSE; Start 11/17/16 at 03:00 Dextrose (D50w Syringe) 50 ml Q15M PRN IV DECREASED GLUCOSE; Start 11/17/16 at 03:00 Glucagon (Glucagen) 1 mg Q15M PRN IM DECREASED GLUCOSE; Start 11/17/16 at 03:00 Glucose (Glutose) 15 gm Q15M PRN BUCCAL DECREASED GLUCOSE; Start 11/17/16 at 03 :00 Insulin Glargine (Lantus) 25 unit HS SC Last administered on 11/22/16 21:40; Admin Dose 25 UNIT; Start 11/21/16 at 21:00 Hydromorphone HCl (Dilaudid CONTRACT TECHNICAL WRITER) 0 MG/HR CONTINUOUS R... Q4PCA IV Last administered on 11/23/16 12:42; Admin Dose 6 MG; Start 11/22/16 at 16:00 IRASEMA MORA NP Nov 23, 2016 18:21
[2016-11-23 20:04] VITALS: BP 127/79; RESP 12
[2016-11-23] MEDS: GABAPENTIN 100 MG CAP PO SCH (21:18)
[2016-11-23] MEDS: QUETIAPINE 25 MG TAB PO SCH (21:18)
[2016-11-23] MEDS: INSULIN GLARGINE [LANtus] 3 ML PEN SC SCH (21:26)
--- NOTE | 2016-11-23 22:53 | PN ---
Date/Time of Note Date/Time of Note DATE: 11/23/16 TIME: 22:51 Assessment/Plan Lines/Catheters IV Catheter Type (from [facility]): PICC Line Assessment/Plan Problems: (1) Foot abscess, left (2) Foot ulcer Status: Acute Qualifiers: Laterality: left Non-pressure ulcer stage: limited to breakdown of skin Qualified Code: L97.521 - Foot ulcer, left, limited to breakdown of skin (3) Cellulitis of foot Status: Acute Assessment/Plan Dressing was changed. There is sig improvement. February D/C home and follow up at [facility]. Daily dressing change with Santyl to the wound. Weight bearing to tolerance. Exam/Review of Systems Vital Signs Vitals Vital Signs Date Time Temp Pulse Resp B/P Pulse Ox O2 Delivery O2 Flow Rate FiO2 11/23/16 20:04 98.4 74 12 127/79 97 11/21/16 21:28 Room Air Intake and Output 11/22/16 11/22/16 11/23/16 15:00 23:00 07:00 Intake Total 2570 ml 2100 ml Output Total 1900 ml 1500 ml Balance 670 ml 600 ml Results Result Diagram: 11/23/16 0500 11/23/16 0500 JOEY TRIANA DPM Nov 23, 2016 22:53
[2016-11-24] MEDS: HYDROmorphONE 0.2 MG/ML PCA IV SCH ×3 (00:18→11:15)
[2016-11-24] MEDS: ACCUCHECK XX SCH (01:46)
[2016-11-24] MEDS: AZTREONAM 1 GM/NS (PMX) 50 ML IVPB SCH (05:12)
[2016-11-24] MEDS: metroNIDAZOLE 500 MG/NS (PMX) 250 MG in EVAC CONTAINER 1 BOTTLE IVPB SCH (06:01)
[2016-11-24] MEDS: LORAZEPAM 1 MG TAB PO PRN ×2 (06:44→15:09)
[2016-11-24] MEDS: VITAMIN B COMPLEX/VIT C CAP PO SCH (09:33)
[2016-11-24] MEDS: NYSTATIN 15 GM CR TOP SCH (09:33)
[2016-11-24] MEDS: VENLAFAXINE (XR) 75 MG CAP PO SCH (09:33)
[2016-11-24] MEDS: SILVER SULFADIAZINE 1% 25 GM CR TOP SCH (09:34)
[2016-11-24] MEDS: INSULIN ASPART [NOVOLOG] 3 ML PEN SC SCH ×4 (09:37→13:11)
--- NOTE | 2016-11-24 12:00 | CONS ---
Date/Time of Note Date/Time of Note DATE: 11/24/16 TIME: 11:58 Assessment/Plan Assessment/Plan Chief Complaint/Hosp Course SUBJECTIVE: Patient is alert, feels ok, no fevers, nad MICROBIOLOGY: Wound culture negative. Blood cultures have been negative. DIAGNOSTICS: MRI of the foot revealed possible early osteomyelitis and questionable 10 cm abscess in the mid foot. ANTIMICROBIALS: 1. Daptomycin. 2. Azactam. 3. Flagyl. PHYSICAL EXAMINATION: GENERAL: Well-nourished, well-developed, middle-aged white man who is alert, in no distress. HEENT: Head atraumatic, normocephalic. Sclerae anicteric. Buccal mucosa pink. NECK: Supple, trachea midline. CHEST: Rise symmetrical. Breath sounds clear. HEART: S1, S2. ABDOMEN: Soft, bowel tones present. EXTREMITIES: Left foot with decreased swelling and erythema. ASSESSMENT: 1. Left foot cellulitis===> s/o i&d==> wound cx negative. 2. Diabetes with diabetic neuropathy. 3. Positive for tobacco use. PLAN: The patient remains stable, per amelia Man pt doesn't need to be on IV abx, no evidence for OM, will change to PO Bactrim for 7 more days, pt to f/u with wound clinic with Dr Magda INGRAM pt/RN AMELIA Man over the phone Problems: Consultation Date/Type/Reason Admit Date/Time Nov 14, 2016 at 22:08 Type of Consultation: ID Referring Provider: TEODORA GARCIA MD Exam/Review of Systems Vital Signs Vitals Vital Signs Date Time Temp Pulse Resp B/P Pulse Ox O2 Delivery O2 Flow Rate FiO2 11/24/16 06:31 18 11/23/16 20:04 98.4 74 127/79 97 11/21/16 21:28 Room Air Intake and Output 11/23/16 11/23/16 11/24/16 15:00 23:00 07:00 Intake Total 50 ml 1000 ml 1350 ml Output Total 600 ml 900 ml Balance 50 ml 400 ml 450 ml Results Result Diagram: 11/23/16 0500 11/23/16 0500 Results 24 hrs Laboratory Tests Test 11/23/16 12:10 11/23/16 17:36 11/23/16 21:16 11/24/16 01:26 Bedside Glucose 296 H 79 193 197 Test 11/24/16 05:24 11/24/16 07:58 11/24/16 11:51 Creatine Kinase 62 Bedside Glucose 210 160 Medications Medications Current Medications Docusate Sodium (Colace) 100 mg BID PRN PO PRN; Start 11/15/16 at 01:00 Gabapentin (Neurontin) 100 mg QHS PO Last administered on 11/23/16 21:18; Admin Dose 100 MG; Start 11/15/16 at 21:00 Ibuprofen (Motrin) 600 mg TID PRN PO PRN; Start 11/15/16 at 01:00 Lorazepam (Ativan) 2 mg TID PRN PO ANXIETY Last administered on 11/24/16 06:44 ; Admin Dose 2 MG; Start 11/15/16 at 01:00 Nystatin (Nystatin Cr) 1 applic BID TOP Last administered on 11/24/16 09:33; Admin Dose 1 APPLIC; Start 11/15/16 at 09:00 Senna (Senokot) 1 tab QHS PRN PO PRN; Start 11/15/16 at 01:00 Venlafaxine HCl (Effexor Xr) 75 mg DAILY PO Last administered on 11/24/16 09: 33; Admin Dose 75 MG; Start 11/15/16 at 09:00 Quetiapine Fumarate (Seroquel) 50 mg HS PO Last administered on 11/23/16 21:18 ; Admin Dose 50 MG; Start 11/15/16 at 21:00 Vitamin B Complex/ Vitamin C (Berocca) 1 cap DAILY PO Last administered on 11/24 09:33; Admin Dose 1 CAP; Start 11/15/16 at 09:00 Diagnostic Test (Pha) 1 ea 1 ea 02 XX Last administered on 11/20/16 02:08; Admin Dose 1 EA; Start 11/15/16 at 02:00 Daptomycin 525 mg/ Sodium Chloride 100 ml @ 200 mls/hr Q24H IVPB Last administered on 11/23/16 16:35; Admin Dose 200 MLS/HR; Start 11/15/16 at 16:00 Metronidazole 250 mg/N/A 50 ml @ 50 mls/hr Q8 IVPB Last administered on 06:01; Admin Dose 50 MLS/HR; Start 11/15/16 at 15:30 Aztreonam (Azactam 1gm/NS (Pmx)) 50 ml @ 100 mls/hr Q8 IVPB Last administered on 11/24/16 05:12; Admin Dose 100 MLS/HR; Start 11/15/16 at 15:30 Silver Sulfadiazine (Thermazene 1% 25 Gm) 1 applic BID TOP Last administered on 11/24/16 09:34; Admin Dose 1 APPLIC; Start 11/15/16 at 21:00 Miscellaneous Information 1 ea NOTE XX ; Start 11/17/16 at 03:00 Glucose (Glutose) 15 gm Q15M PRN PO DECREASED GLUCOSE; Start 11/17/16 at 03:00 Glucose (Glutose) 22.5 gm Q15M PRN PO DECREASED GLUCOSE; Start 11/17/16 at 03: 00 Dextrose (D50w Syringe) 25 ml Q15M PRN IV DECREASED GLUCOSE; Start 11/17/16 at 03:00 Dextrose (D50w Syringe) 50 ml Q15M PRN IV DECREASED GLUCOSE; Start 11/17/16 at 03:00 Glucagon (Glucagen) 1 mg Q15M PRN IM DECREASED GLUCOSE; Start 11/17/16 at 03:00 Glucose (Glutose) 15 gm Q15M PRN BUCCAL DECREASED GLUCOSE; Start 11/17/16 at 03 :00 Insulin Glargine (Lantus) 25 unit HS SC Last administered on 11/23/16 21:26; Admin Dose 25 UNIT; Start 11/21/16 at 21:00 Hydromorphone HCl (Dilaudid DEFENSIVE LINE COACH) 0 MG/HR CONTINUOUS R... Q4PCA IV Last administered on 11/24/16 11:15; Admin Dose 6 MG; Start 11/22/16 at 16:00 IRASEMA MORA NP Nov 24, 2016 12:00
--- NOTE | 2016-11-24 12:16 | PDOCDIS ---
Discharge Instructions CONDITION Patient Condition: Stable HOME CARE INSTRUCTIONS: Special Diet: DIABETIC CARB COUNT ACTIVITY: Activity Restrictions: Slowly Increase Activity FOLLOW UP/APPOINTMENTS Appointments f/u dr jass cyr [address] gage 2 wks see own pcp 1 wk TEODORA GARCIA MD Nov 24, 2016 12:16
[2016-11-24] MEDS ORDERED: NOVO3I SC (12:19)
[2016-11-24] MEDS ORDERED: LANT3I SC (12:19)
[2016-11-24] MEDS ORDERED: BACTDS PO (12:19)
[2016-11-24] MEDS ORDERED: SSD1C20 TOP (12:19)
[2016-11-24] MEDS ORDERED: TRIMETHOPRIM/SULFAMETHOX (DS) TAB PO SCH (13:00)
[2016-11-25] MEDS ORDERED: COLLAGENASE 30 GM TUBE TOP SCH (09:00)
== END 2016-11-24 16:30 | disposition home or self-care (01) | DRG 982 ==
LOC: E/R 20:17 → MS2 22:08
PROVIDERS: ADMIT Internal Medicine Nephrology; ATTEND Internal Medicine Nephrology
PROC: 0JDR3ZZ Extraction of Left Foot Subcutaneous Tissue and Fascia, Percutaneous Approach (ICD-10-PCS; principal; 2016-11-21 17:00)
DX: E10.69 Type 1 diabetes mellitus with other specified complication (principal); L03.116 Cellulitis of left lower limb; M86.8X7 Other osteomyelitis, ankle and foot; E10.621 Type 1 diabetes mellitus with foot ulcer; E10.42 Type 1 diabetes mellitus with diabetic polyneuropathy; E10.628 Type 1 diabetes mellitus with other skin complications; E10.65 Type 1 diabetes mellitus with hyperglycemia; L97.521 Non-pressure chronic ulcer of other part of left foot limited to breakdown of skin; F17.200 Nicotine dependence, unspecified, uncomplicated; D72.819 Decreased white blood cell count, unspecified; E86.0 Dehydration; L29.9 Pruritus, unspecified; T50.905A Adverse effect of unspecified drugs, medicaments and biological substances, initial encounter; Y92.239 Unspecified place in hospital as the place of occurrence of the external cause
CPT/HCPCS: 36415; 71020; 73718; 80048; 80053; 80069; 82550; 82553; 82565; 82962; 83036; 84484; 84520; 85025; 85651; 86140; 86703; 87040; 87070; 87081; 88304; 96365; 96375; J0743; J1170; J1815; J2175; J2270; J2405; J2997; J3010; J3370; J7040; J7050

== ENCOUNTER → 2017-12-08 | Outpatient (CLI) | END | disposition home or self-care (01) ==

== ENCOUNTER → 2018-04-20 | Outpatient (CLI) | END | disposition home or self-care (01) ==

== ENCOUNTER → 2018-07-12 | Outpatient (CLI) | END | disposition home or self-care (01) ==